=== PATIENT | male | born 1985 | race Caucasian/White ===

== ENCOUNTER 2023-07-14 07:38 | Emergency (ER) | payer OTHER, SELFPAY ==
[2023-07-14 07:39] VITALS: BP 128/86; PULSE 91; RESP 16; TEMP 36.4; O2SAT 98; BMI 27.6
--- NOTE | 2023-07-14 07:54 | EKG12_ITS ---
Test Reason : WEAKNESS Blood Pressure : / mmHG Vent. Rate : 096 BPM Atrial Rate : 096 BPM P-R Int : 154 ms QRS Dur : 098 ms QT Int : 352 ms P-R-T Axes : 066 054 044 degrees QTc Int : 444 ms Normal sinus rhythm Nonspecific ST abnormality Abnormal ECG Confirmed by MATTY BUENO, KERRIE ([id number]), web content editor FAITH LEMA ([id number]) on 07/15/2023 12:03:05 PM Referred By: BUD Confirmed By:KERRIE STARR MD
--- NOTE | 2023-07-14 08:12 | EX.ED.DYSGE1 ---
HPI History of Present Illness Chief Complaint: General Illness Informant: patient Narrative Narrative: Presents feeling weak nausea vomiting no hematemesis today. Tingling left arm. Denies cough or urinary symptoms. Marijuana use daily. CT scan here with no other stating chest patient works 16 hours a day with 1 day off. He does sleep a few hours. He denies alcohol use. Denies history of similar. Denies any bloody stools. Does not follow doctor. Prior similar symptoms: No PFSH PFSH Home Medications tramadol 50 mg tablet 50 mg PO Q4H PRN PRN Pain 05/31/16 [History Last Taken Unknown] diazepam 5 mg tablet 5 mg PO 4X/DAY PRN PRN Spasms #40 tabs 06/02/16 [Rx Last Taken Unknown] levofloxacin 500 mg tablet 500 mg PO DAILY #14 tabs 06/02/16 [Rx Last Taken Unknown] oxycodone-acetaminophen 5 mg-325 mg tablet 1 - 2 tab PO 4X/DAY PRN PRN Pain #60 tabs 06/02/16 [Rx Last Taken Unknown] ondansetron 4 mg disintegrating tablet 4 mg PO Q8H PRN PRN Nausea #10 tabs 07/14/23 [Rx Last Taken Unknown] Allergy/AdvReac Type Severity Reaction Status Date / Time No Known Allergies Allergy Verified 07/14/23 07:38 Social History Smoking Status: Light Smoker (<10/day) ROS [facility] ED Constitutional Constitutional ED: Denies chills, fever(s) or sweats Eyes Eyes: Denies change in vision ENT ENT ED: Denies dysphagia or sore throat Cardiovascular Cardiovascular: Denies chest pain, leg edema, palpitations or racing heartbeat Respiratory/Chest Respiratory/Chest: Denies cough, dyspnea or dyspnea on exertion Gastrointestinal Gastrointestinal: Reports nausea and vomiting; Denies abdominal pain or diarrhea Genitourinary Genitourinary ED: Denies dysuria, hematuria or urinary frequency Musculoskeletal Musculoskeletal: Denies back pain, extremity pain or neck pain Integumentary Denies rash or wounds Neurologic Neurologic: Reports weakness; Denies headache(s) or paresthesias EXAM Physical Exam Const Vital Signs: 07/14/23 07:39 07/14/23 07:38 07/14/23 09:38 Temperature 97.6 F L Temperature Source Temporal Pulse Rate 91 Respiratory Rate 16 18 Respiratory Effort Normal Non-Labored Respiratory Pattern Normal Blood Pressure 128/86 H Blood Pressure Mean 100 Pulse Ox 98 Oxygen Delivery Method Room Air Positive well nourished and well developed Constitutional Narrative: Pale, nontoxic, no diaphoresis General Appearance ED: well developed HEENT Reports moist mucous membranes normocephalic and atraumatic Eyes PERRL, EOMs intact bilaterally and conjunctivae normal Eyes Narrative: Mild pale conjunctiva General Eye ED: Yes normal appearance of both eyes Neck no lymphadenopathy and supple General: Negative for tenderness Chest Wall Chest: Negative for tenderness Resp normal respiratory effort and normal air movement Effort and Inspection: symmetric chest movement; Negative for respiratory distress Cardio regular rate, regular rhythm and no murmurs Peripheral Pulses: pulses 2+ throughout GI normal to inspection, nondistended, normoactive bowel sounds and non-tender GI Narrative: Negative Bojorquez's McBurney's tenderness Palpation: Negative for guarding or rebound tenderness present Back/Spine no CVA tenderness and no thoracic nor lumbar tenderness Extremity normal to inspection General Extremety ED: Negative for edema or tenderness General Extremity: Negative for edema Neuro oriented x3, CN's II-XII intact bilaterally and no sensory deficits noted Neuro Narrative: No focal deficits Sensorium / Orientation: awake and alert Skin no rashes or lesions noted and no wounds MDM MDM MDM Narrative Medical decision making narrative: Interventions / MDM: Differential diagnosis: Viral syndrome, marijuana dependence, electrolyte abnormalities Diagnosis considered but do not suspect: N/A My EKG interpretation: Sinus rate of 96, no ST or T wave changes. Imaging independently reviewed and interpreted by myself: N/A External documents reviewed: N/A Test considered but not ordered:N/A ED course: Patient acute vomiting pale on exam. Nonsurgical abdomen. IV established for fluids and antigen headaches labs were drawn. EKG obtained pain this rhythm acute finding. 1010: Labs stable normal electrolytes. Hemoglobin 13.6. Clinically improved with no pallor. Discussed viral syndrome versus marijuana induced. P.o. challenge ordered. Re-evaluation: stable Disposition discussed with patient/family/significant other: Case discussed with consulting clinician: N/A This note was generated with [employer] dictation software. It may contain incorrect words, spelling, and punctuation that were not noted in checking the note before signing. Lab Data Labs: Laboratory Results - last 24 hr 07/14/23 07/14/23 07/14/23 08:06 08:06 08:54 WBC Cancelled 6.8 Corrected WBC Cancelled RBC Cancelled 4.05 L Hgb Cancelled 13.6 Hct Cancelled 40.6 MCV Cancelled 100.2 H MCH Cancelled 33.6 H MCHC Cancelled 33.5 RDW Std Deviation Cancelled 47.2 H RDW Coeff of Gregg Cancelled 12.9 Plt Count Cancelled 190 MPV Cancelled 9.2 Immature Gran % (Auto) Cancelled 0.400 Neut % (Auto) Cancelled 73.8 H Lymph % (Auto) Cancelled 18.7 L [place] % (Auto) Cancelled 4.4 Eos % (Auto) Cancelled 2.1 Baso % (Auto) Cancelled 0.6 Absolute Neuts (auto) Cancelled 5.0 Absolute Lymphs (auto) Cancelled 1.27 Total Counted Cancelled Neutrophils % (Manual) Cancelled Band Neutrophils % Cancelled Lymphocytes % (Manual) Cancelled Monocytes % (Manual) Cancelled Eosinophils % (Manual) Cancelled Basophils % (Manual) Cancelled Metamyelocytes % Cancelled Myelocytes % Cancelled Promyelocytes % Cancelled Blast Cells % Cancelled Plasma Cell % (Manual) Cancelled Other Cells % Cancelled Nucleated RBC % Cancelled 0 Nucleated RBCs/100 WBC Cancelled Differential Comment Cancelled Diff Path Review Cancelled Hypersegmented Neuts Cancelled Atypical Lymphocytes Cancelled Reactive Lymphocytes Cancelled Smudge Cells Cancelled Toxic Granulation Cancelled Toxic Vacuolation Cancelled Dohle Bodies Cancelled [place] Rods Cancelled Platelet Estimate Cancelled Plt Morphology Comment Cancelled RBC Morphology Cancelled Cancelled Polychromasia Cancelled Hypochromasia Cancelled Poikilocytosis Cancelled Basophilic Stippling Cancelled Anisocytosis Cancelled Microcytosis Cancelled Macrocytosis Cancelled Spherocytes Cancelled Sickle Cells Cancelled Target Cells Cancelled Tear Drop Cells Cancelled Ovalocytes Cancelled Stomatocytes Cancelled [place] Bodies Cancelled Jyoti Cells Cancelled Bite Cells Cancelled Crenated Cell Cancelled Acanthocytes (Spur) Cancelled Rouleaux Cancelled Schistocytes Cancelled Sodium 138 Potassium 3.7 Chloride 108 H Carbon Dioxide 22.0 Anion Gap 8 BUN 13 Creatinine 1.06 Estim Creat Clear Calc 106.78 Est GFR (MDRD) Af Amer 100 Est GFR (MDRD) Non-Af 83 BUN/Creatinine Ratio 12.3 Glucose 134 H Calcium 8.8 Discharge Plan Triage Chief Complaint: General Illness ED Provider: Sushil Yepez Dx/Rx/DC Orders Clinical Impression: Marijuana dependence, Acute viral syndrome, Vomiting Instructions: ED Marijuana Abuse, ED Viral Syndrome (Adult), ED Vomiting (Adult) Prescriptions: New ondansetron [ondansetron] 4 mg tablet,disintegrating 4 mg PO Q8H PRN PRN (Reason: Nausea) Qty: 10 0RF No Action tramadol 50 MG tablet 50 mg PO Q4H PRN PRN (Reason: Pain) Patient Comments: Pain medication oxycodone-acetaminophen 1 TABLET tablet 1 - 2 tab PO 4X/DAY PRN PRN (Reason: Pain) Qty: 60 0RF Patient Comments: pain levofloxacin 500 MG tablet 500 mg PO DAILY Qty: 14 2RF Patient Comments: antibiotic diazepam 5 MG tablet 5 mg PO 4X/DAY PRN PRN (Reason: Spasms) Qty: 40 0RF Patient Comments: muscle spasm/pain Stand Alone Forms: ED Work / School Excuse Primary Care Provider: Care Physician,No Primary Referrals: Rosa Maria Reich MD [Med Staff - Spiritual Counselor] - 1-2 Weeks Care Physician,No Primary [Primary Care Provider] - Activity Restrictions/Additional Instructions: EKG and COVID test normal. Basic labs normal. Likely viral syndrome possible marijuana induced. Continue oral fluids, Zofran as needed. Follow-up as an outpatient. Return if any worsening symptoms. Disposition Disposition: Home, Self Care Discharge Date/Time: 07/14/23 11:00
[2023-07-14] MEDS: Ondansetron 4 MG/2 ML Vial IV (08:37)
[2023-07-14] MEDS: 0.9% Normal Saline 1,000 ML 1000 ML IV (08:37)
[2023-07-14 08:38] LABS: Anion Gap 8 (5-15); BUN 13 mg/dL (7-18); BUN/Creat Ratio 12.3 RATIO (10-20); Calcium,Total 8.8 mg/dL (8.5-10.1); Chloride 108 mmol/L (98-107); Creatinine, Serum 1.06 mg/dL (0.70-1.30); EST Glomerular Filtration Rate 83 mL/min (>60); Est Glom Filt Rate - Afr Amer 100 mL/min (>60); Estimated Creatinine Clearance 106.78 ml/min; Glucose 134 mg/dL (74-106); Potassium 3.7 mmol/L (3.5-5.1); Sodium Level 138 mmol/L (136-145)
[2023-07-14 09:01] LABS: Absolute Lymphocyte Count 1.27 X10^3/uL (0.83-4.51); Basophil# 0.04 X10^3/uL; Basophil% 0.6 % (0-1); Eosinophil# 0.14 X10^3/uL; Eosinophils% 2.1 % (0-5); Hematocrit 40.6 % (40-54); Hemoglobin 13.6 g/dL (13.0-16.5); Lymphocyte # 1.27 X10^3/ul (0.83-4.51); Lymphocyte % 18.7 % (19-41); Mean Corp Hgb Conc 33.5 g/dL (32-36); Mean Corpuscular Hgb 33.6 pg (27.0-32.0); Mean Corpuscular Volume 100.2 fL (80-94); Mean Platelet Vol. 9.2 fl (6.2-12.0); Monocyte% 4.4 % (0-10); NRBC Flagged by Analyzer 0 % (0-5); Neutrophil % 73.8 % (47-70); Platelet Count 190 K/mm3 (150-450); RBC Distribution Width CV 12.9 % (11.6-14.6); RBC Distribution Width SD 47.2 fl (35.1-43.9); Red Blood Count 4.05 M/mm3 (4.6-6.2); White Blood Count 6.8 K/mm3 (4.4-11.0)
[2023-07-14 09:38] VITALS: RESP 18
[2023-07-14] MEDS: Acetaminophen 500 MG Tablet 1000 MG PO (10:06)
== END 2023-07-14 11:00 | disposition home or self-care (01) ==
PROVIDERS: Emergency Provider Emergency Medicine; Visit Provider Emergency Medicine
DX: B34.9 Viral infection, unspecified (principal); F12.20 Cannabis dependence, uncomplicated; F17.200 Nicotine dependence, unspecified, uncomplicated; R11.10 Vomiting, unspecified
CPT/HCPCS: 80048; 85025; 87428; 93005; 96361; 96374; 99284; J7030; A4216; J2405

== ENCOUNTER → 2025-02-28 | Outpatient (CLI) | payer OTHER, SELFPAY ==
[2025-02-28 12:43] LABS: Absolute Lymphocyte Count 1.94 X10^3/uL (0.83-4.51); Absolute Neutrophil Count 2.6 X10^3/uL (2.0-7.7); Basophil# 0.05 X10^3/uL; Basophil% 0.9 % (0-1); Eosinophil# 0.37 X10^3/uL; Hematocrit 44.8 % (40-54); Hemoglobin 15.5 g/dL (13.0-16.5); Lymphocyte # 1.94 X10^3/ul (0.83-4.51); Lymphocyte % 36.7 % (19-41); Mean Corp Hgb Conc 34.6 g/dL (32-36); Mean Corpuscular Hgb 33.9 pg (27.0-32.0); Mean Platelet Vol. 9.2 fl (6.2-12.0); Monocyte# 0.34 X10^3/uL; Monocyte% 6.4 % (0-10); NRBC Flagged by Analyzer 0 % (0-5); Neutrophil # 2.58 X10^3/uL (2.7-7.7); Neutrophil % 48.8 % (47-70); POSITIVE MORPHOLOGY YES; Platelet Count 208 K/mm3 (150-450); RBC Distribution Width CV 12.2 % (11.6-14.6); RBC Distribution Width SD 44.1 fl (35.1-43.9); Red Blood Count 4.57 M/mm3 (4.6-6.2); White Blood Count 5.3 K/mm3 (4.4-11.0)
[2025-02-28 12:51] LABS: Differential Indicated SCAN CRITERIA MET
[2025-02-28 13:27] LABS: ALB/GLOB Ratio 1.4 RATIO (0.9-2.4); AST(SGOT) 19 U/L (<=37); Alanine Aminotransfer ALT/SGPT 13 U/L (<=46); Albumin, Serum 4.2 g/dL (3.5-5.0); Alkaline Phosphatase 81 U/L (40-129); Anion Gap 11 (5-15); BUN 15 mg/dL (4-19); BUN/Creat Ratio 15.1 RATIO (10-20); Calcium,Total 8.8 mg/dL (7.6-11.0); Carbon Dioxide 24.4 mmol/L (21.0-32.0); Chloride 105 mmol/L (98-108); Cholesterol 185 mg/dL (<=200); Creatinine, Serum 0.99 mg/dL (0.70-1.20); EST Glomerular Filtration Rate 99 (>60); Glucose 93 mg/dL (70-99); High Density Lipoprotein 42 mg/dL; Low Density Lipoprotein Calc. 129 mg/dL; Potassium 4.2 mmol/L (3.3-5.1); Protein, Total 7.2 g/dL (5.9-8.4); Sodium Level 140 mmol/L (133-145); Total Bilirubin 0.33 mg/dL (0.00-1.30); Triglycerides 68 mg/dL; Very Low Density Lipoprotein 14 mg/dL (5-40); cholesterol:hdl ratio screen 4.37
[2025-02-28 13:29] LABS: PSA,Total - Annual Screen 0.75 ng/mL (0.02-4.00); Vitamin B12 1665 pg/mL (180-914); Vitamin D,25 Hydroxy 14.8 ng/mL (30-100)
[2025-02-28 13:40] LABS: Hemoglobin A1c 5.5 % (<=5.6)
== END | disposition home or self-care (01) ==
LOC: VSLAB 09:28
DX: Z13.6 Encounter for screening for cardiovascular disorders (principal); Z13.220 Encounter for screening for lipoid disorders; Z13.1 Encounter for screening for diabetes mellitus; Z80.42 Family history of malignant neoplasm of prostate; R53.83 Other fatigue
CPT/HCPCS: 36415; 80053; 80061; 82306; 82607; 83036; 84153; 84443; 85025; G0103

== ENCOUNTER → 2025-05-30 | Outpatient (CLI) | payer OTHER, SELFPAY ==
--- NOTE | 2025-05-30 10:00 | VAS_PTH ---
PATIENT: PILY BEST LOC: [facility] U#:[id number] AGE/SX: 39/M ROOM: RE05/30/[address] 1985 [facility]: DIS: 05/30/2025 SPEC #: [id number] RECD: 05/30/25 14:16 STATUS: NARA REDavis #: [id number] [place]: 05/30/25 10:[address]: Atul Self [facility] DEPT: SURGICAL PATHOLOGY RECD BY: Deacon Samuel ENTERED: 05/30/25 15:10 SP TYPE: VAS OTHR DR: Rossy Agarwal, [facility], VISUAL AID EXPERT-C Tissues: A - Vas deferens, NOS Procedures: Surgery Specimen Level II HEADER OPERATION: Bilateral partial vasectomy PRE-OP DIAGNOSIS: Sterilization TISSUE SUBMITTED: A- Right vas deferens, B- Left vas deferens MICROSCOPIC DIAGNOSIS A. Vas deferens, right, "sterilization", partial vasectomy: - Complete luminal cross-section confirmed. B. Vas deferens, left, "sterilization", partial vasectomy: - Complete luminal cross-section confirmed. MICROSCOPIC DESCRIPTION Slides are reviewed. GROSS DESCRIPTION Received in 2 formalin containers labeled with the patient's name and date of . Designated as: A. "Right" is a 1.4 cm length by 0.3 cm in diameter saba-white to pink, fibrotic, cylindrical portion of tissue. The specimen is inked black, serially sectioned and entirely submitted in 1 cassette. B. "Left" is a 1.0 cm length by 0.3 cm in diameter saba-white to pink, fibrotic, cylindrical portion of tissue. The specimen is inked green, serially sectioned and entirely submitted in 1 cassette. SD 05/30/2025 CPT:57522k1
== END | disposition home or self-care (01) ==
LOC: LABSPEC 11:59
PROVIDERS: Visit Provider Surgery
DX: Z20.2 Contact with and (suspected) exposure to infections with a predominantly sexual mode of transmission (principal)
CPT/HCPCS: 88302

== ENCOUNTER → 2025-06-06 | Outpatient (CLI) | payer OTHER, SELFPAY ==
[2025-06-06 13:18] LABS: Vitamin D,25 Hydroxy 32.9 ng/mL (30-100)
== END | disposition home or self-care (01) ==
LOC: VSLAB 08:57
DX: E55.9 Vitamin D deficiency, unspecified (principal); Z98.52 Vasectomy status
CPT/HCPCS: 36415; 82306

== ENCOUNTER → 2025-06-13 | Outpatient (CLI) | payer OTHER, SELFPAY | END | disposition home or self-care (01) | LOC: LABSPEC 10:49 | PROVIDERS: Visit Provider Surgery | DX: L72.0 Epidermal cyst (principal) | CPT/HCPCS: 88304 ==

== ENCOUNTER 2025-08-29 12:26 | Outpatient (CLI) | payer OTHER, SELFPAY ==
--- OUTSIDE RECORDS SUMMARY | 2025-08-29 14:04 | XMS RPT_ITS | CCD ---
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 Atul Self MD Attending Provider Beam, Zekimi Primary Care Unavailable Atul Harris Attending Unavailable Rossy Agarwal Attending Unavailable Beam, Zebujuani Primary Care Unavailable Beam, Zekimi Primary Care Unavailable Atul Harris Attending Unavailable Atul Harris Attending Unavailable Beam, Zebujuani Primary Care Unavailable Beam, Zekimi Attending Unavailable Beam, Zebulun Primary Care Unavailable Medications Current Medications Medication Drug Class(es) Dates Sig (Normalized) Sig (Original) acetaminophen 325 mg / oxyCODONE hydrochloride 5 mg oral tablet (3 sources) Opioid Agonist Start: 06-02-2016 Oxycodone-Acetamin ophen 1 TABLET tablet Active 1 - 2 {tbl} PO 4 TIMES DAILY NEEDED as needed for Pain 60 June 02, 2016 6:36pm Start: 06-02-2016 take 1 tablet by [facility] four times daily as needed Oxycodone-Acetaminophen Active 1 - 2 TABLET PO 4 TIMES DAILY NEEDED 60 June 02, 2016 6:36pm diazePAM 5 mg oral tablet (3 sources) Benzodiazepine Start: 06-02-2016 take 1 tablet by mouth four times daily as needed for muscle spasms Diazepam 5 MG tablet Active 5 mg PO 4 TIMES DAILY NEEDED as needed for Spasms 40 June 02, 2016 6:36pm levoFLOXacin 500 mg oral tablet (3 sources) Quinolone Antimicrobial Start: 06-02-2016 take 1 tablet by mouth once daily Levofloxacin 500 MG tablet Active 500 mg PO DAILY 14 2 June 02, 2016 12:00am ondansetron 4 mg disintegrating oral tablet (3 sources) Serotonin-3 Receptor Antagonist Start: 07-14-2023 take 1 tablet by mouth every eight hours as needed for nausea Ondansetron 4 mg tablet,disintegra ting Active 4 mg PO EVERY 8 HOURS NEEDED as needed for Nausea 10 July 14, 2023 12:00am traMADol hydrochloride 50 mg oral tablet (3 sources) Opioid Agonist Start: 05-31-2016 take 1 tablet by mouth every four hours as needed for pain Tramadol 50 MG tablet Active 50 mg PO EVERY 4 HOURS NEEDED as needed for Pain May 31, 2016 12:00am Completed/Discontinued Medications Medication Drug Class(es) Dates Sig (Normalized) Sig (Original) cephalexin 500 mg oral capsule (3 sources) Cephalosporin Antibacterial Start: 03-13-2016 End: 04-01-2016 take 1 capsule by mouth every six hours Cephalexin 500 MG capsule Discontinued 500 mg PO EVERY 6 HOURS March 13, 2016 12:00am April 01, 2016 11:18am Problems Active Problems Problem Classification Problem Date Documented Date Episodic/Chronic Administrative/social admission (3 sources) Counseling procedure with explicit context; Translations: [Tobacco abuse counseling] 07-09-2016 Episodic Anal and rectal conditions (3 sources) Perirectal abscess; Translations: [Rectal abscess] 09-03-2016 Episodic Chronic ulcer of skin (3 sources) Chronic ulcer of skin; Translations: [Non-pressure chronic ulcer of skin of other sites with unspecified severity] 09-10-2016 Chronic Comment on above: L98.499nonhealing pi lonidal ulcer sacral area Complications of surgical procedures or medical care (3 sources) Non-healing surgical wound; Translations: [Other complications of procedures, not elsewhere classified, initial encounter] 09-10-2016 Episodic Contraceptive and procreative management (1 source) Vasectomy status; Translations: [Vasectomy status] Onset: 06-06-2025 Episodic Immunizations and screening for infectious disease (1 source) Contact with and (suspected) exposure to infections with a predominantly sexual mode of transmission; Translations: [Contact with and (suspected) exposure to infections with a predominantly sexual mode of transmission] Onset: 06-04-2025 Episodic Nausea and vomiting (3 sources) Vomiting; Translations: [Vomiting, unspecified] 07-14-2023 Episodic Nutritional deficiencies (1 source) Vitamin D deficiency, unspecified; Translations: [Vitamin D deficiency, unspecified] Onset: 06-13-2025 Chronic Open wounds of head; neck; and trunk (3 sources) Finding of sacral region; Translations: [Unspecified open wound of lower back and pelvis without penetration into retroperitoneum, initial encounter] 06-25-2016 Episodic Comment on above: S31.000Aopen surgica l wound sacral area Other aftercare (3 sources) Postoperative visit; Translations: [Encounter for follow-up examination after completed treatment for conditions other than malignant neoplasm] 08-13-2016 Episodic Other skin disorders (1 source) Epidermal cyst; Translations: [Epidermal cyst] Onset: 06-20-2025 Episodic Skin and subcutaneous tissue infections (6 sources) Pilonidal cyst with abscess; Translations: [Pilonidal cyst with abscess] 06-25-2016 Episodic Comment on above: L05.01extensive comp licated infected pilonidal cyst with perianal extension Spondylosis; intervertebral disc disorders; other back problems (3 sources) Pain in the coccyx; Translations: [Sacrococcygeal disorders, not elsewhere classified] 08-13-2016 Episodic Substance-related disorders (6 sources) Cannabis dependence; Translations: [Cannabis dependence, uncomplicated] 07-14-2023 Chronic Comment on above: F17.200 Viral infection (3 sources) Acute viral disease; Translations: [Viral infection, unspecified] 07-14-2023 Episodic Past or Other Problems Problem Classification Problem Date Documented Date Episodic/Chronic Other screening for suspected conditions (not mental disorders or infectious disease) (1 source) Encounter for screening for cardiovascular disorders; Translations: [Encounter for screening for cardiovascular disorders] Onset: 03-05-2025 Episodic Results Test Name Value Interpretation Reference Range Facility Surgical pathology reportOrd ered By: Franck Briones on 06-18-2025 Surgical pathology study [facility] Surgery Specimen Level IIIon 06-13-2025 Surgery Specimen Level III Patient Age/Sex Location Account Attending Physician PILY BEST 39/M LABSPEC [id number] Atul Self MD Specimen: [id number] Received: 06/13/25 Status: NARA Carney Num: [id number] Spec Type: Cyst Subm Dr: Atul Self MD HEADER OPERATION: Wide excision superior forehead cyst PRE-OP DIAGNOSIS: Superior forehead sebaceous cyst TISSUE SUBMITTED: A- Superior forehead sebaceous cyst MICROSCOPIC DIAGNOSIS A. Skin, superior forehead, excision: * Benign follicular cyst, infundibular type MICROSCOPIC DESCRIPTION Slides are reviewed. GROSS DESCRIPTION A. Received in formalin labeled with the patient's name and date of is a 2.6 x 1.8 x 1.4 cm saba-white, intact cyst partially surfaced by a 2.9 x 0.8 cm saba skin ellipse devoid of orientation. Sectioning reveals a fibrotic cyst wall and saba-white, sebaceous like cyst contents. A solar manufacturer's representative section is submitted in 1 cassette. NC 06/13/2025 [facility]:[id number] Patient Age/Sex Location Account Attending Physician PILY BEST 39/M LABSPEC [id number] Atul Self MD Signed (signatur e on file) Dr. Franck Ortega MD 06/18/25 1333 Normal [facility] Comment on above: Performed By: #### P SUIII #### [facility] [address] [place], [address] Vitamin D,25 Hydroxyon 06-06 Vitamin D 25-OH 32.9 ng/mL Normal 30-100 [facility] Comment on above: Result Comment: Alayna min D Status Deficiency: <20 ng/mL (50nmol/L) Insufficiency: 20-30 ng/mL (50-75 nmol/L) Sufficiency: 30-100 ng/mL (75-250 nmol/L) Toxicity: >100 ng/mL (>250 nmol/L) Performed By: #### L 506.1001, L500.4050, L500.4100, L503.0106, L100.0100, L501.9910, L501.9520, L501.9985 #### [facility] [address] [place], [address] Surgical pathology reportOrd ered By: Mackenzie Leos on 06-03-2025 Surgical pathology study [facility] Surgery Specimen Level IIon 05-30-2025 Surgery Specimen Level II ----- Patient Age/Sex Location Account Attending Physician PILY BEST 39/M LABSPEC [id number] Atul Self MD Specimen: [id number] Received: 05/30/25 Status: NARA Carney Num: [id number] Spec Type: VAS Subm Dr: Atul Self [facility] HEADER OPERATION: Bilateral partial vasectomy PRE-OP DIAGNOSIS: Sterilization TISSUE SUBMITTED: A- Right vas deferens, B- Left vas deferens MICROSCOPIC DIAGNOSIS A. Vas deferens, right, sterilization, partial vasectomy: - Complete luminal cross-section confirmed. B. Vas deferens, left, sterilization, partial vasectomy: - Complete luminal cross-section confirmed. MICROSCOPIC DESCRIPTION Slides are reviewed. GROSS DESCRIPTION Received in 2 formalin containers labeled with the patient's name and date of . Designated as: A. Right is a 1.4 cm length by 0.3 cm in diameter saba-white to pink, fibrotic, cylindrical portion of tissue. The specimen is inked black, serially sectioned and entirely submitted in 1 cassette. B. Left is a 1.0 cm length by 0.3 cm in diameter saba-white to pink, fibrotic, cylindrical portion of tissue. The specimen is inked green, serially sectioned and entirely submitted in 1 cassette. NC 05/30/2025 CPT:02884v3 Patient Age/Sex Location Account Attending Physician PILY BEST 39/M LABSPEC [id number] Atul Self MD Signed (signatur e on file) Dr. Mackenzie Leos MD 06/03/25 3355 Normal [facility] Comment on above: Performed By: #### P SUII #### [facility] [address] [facility] [place], [place], [id number] Absolute lymphocyte countOrd ered By: Zebulun Beam on 02-28-2025 Lymphocytes Auto (Unsp spec) [#/Vol] 1.94 10*3/uL 0.83-4.51 [facility] Absolute neutrophil countOrd ered By: Zebulun Beam on 02-28-2025 Neutrophils (Bld) [#/Vol] 2.6 10*3/uL 2.0-7.7 [facility] Anion gap in Serum or Plasma Ordered By: Zebulun Beam on 02-28-2025 Anion gap [Moles/Vol] 11 mmol/L 5- [facility] Automated lymphocyte count a s percentage of total leukocytesOrdered By: Zebulun Beam on 02-28-2025 Lymphocytes/100 WBC Auto (Unsp spec) 36.7 % - [facility] BUN/creatinine ratioOrdered By: Zebulun Beam on 02-28-2025 Urea nitrogen/Creatinine [Mass ratio] 15.1 mg/mg 10- [facility] Basophil percentageOrdered B y: Zebulun Beam on 02-28-2025 Basophils/100 WBC (Bld) 0.9 % 0-1 [facility] Bilirubin, totalOrdered By: Zebulun Beam on 02-28-2025 Bilirubin [Mass/Vol] 0.33 mg/dL 0.00-1.30 [facility] CBC W/Diff, Automatedon 02-06 Absolute Lymph 1.94 X10 3/uL Normal 0.83-4.51 [facility] Comment on above: Performed By: #### L 506.1001, L500.4050, L500.4100, L503.0106, L100.0100, L501.9910, L501.9520, L501.9985 #### [facility] [address] [place], [address] Absolute Neut 2.6 X10 3/uL Normal 2.0-7.7 [facility] Comment on above: Performed By: #### L 506.1001, L500.4050, L500.4100, L503.0106, L100.0100, L501.9910, L501.9520, L501.9985 #### [facility] [address] [place], [address] Basophils/100 WBC (Bld) 0.9 % Normal 0-1 [facility] Comment on above: Performed By: #### L 506.1001, L500.4050, L500.4100, L503.0106, L100.0100, L501.9910, L501.9520, L501.9985 #### [facility] [address] [place], [address] Eosinophils/100 WBC (Bld) 7.0 % High 0-5 [facility] Comment on above: Performed By: #### L 506.1001, L500.4050, L500.4100, L503.0106, L100.0100, L501.9910, L501.9520, L501.9985 #### [facility] [address] [place], [address] Erythrocyte distribution width (RBC) [Ratio] 12.2 % Normal 11.6-14.6 [facility] Comment on above: Performed By: #### L 506.1001, L500.4050, L500.4100, L503.0106, L100.0100, L501.9910, L501.9520, L501.9985 #### [facility] [address] [place], [address] Hematocrit (Bld) [Volume fraction] 44.8 % Normal 40-54 [facility] Comment on above: Performed By: #### L 506.1001, L500.4050, L500.4100, L503.0106, L100.0100, L501.9910, L501.9520, L501.9985 #### [facility] [address] [place], [address] Hemoglobin (Bld) [Mass/Vol] 15.5 g/dL Normal 13.0-16.5 [facility] Comment on above: Performed By: #### L 506.1001, L500.4050, L500.4100, L503.0106, L100.0100, L501.9910, L501.9520, L501.9985 #### [facility] [address] [place], [address] IG% 0.200 Normal 0.0-0.9 [facility] Comment on above: Result Comment: IG% - Immature Granulocytes (promyelocytes, myelocytes and metamyelocytes) > 1% indicates that a LEFT SHIFT is Present. Performed By: #### L 506.1001, L500.4050, L500.4100, L503.0106, L100.0100, L501.9910, L501.9520, L501.9985 #### [facility] [address] [place], [address] Lymphocytes/100 WBC (Bld) 36.7 % Normal 19-41 [facility] Comment on above: Performed By: #### L 506.1001, L500.4050, L500.4100, L503.0106, L100.0100, L501.9910, L501.9520, L501.9985 #### [facility] [address] [place], [address] MCH (RBC) [Entitic mass] 33.9 pg High 27.0-32.0 [facility] Comment on above: Performed By: #### L 506.1001, L500.4050, L500.4100, L503.0106, L100.0100, L501.9910, L501.9520, L501.9985 #### [facility] [address] [place], [address] MCHC (RBC) [Mass/Vol] 34.6 g/dL Normal 32-36 [facility] Comment on above: Performed By: #### L 506.1001, L500.4050, L500.4100, L503.0106, L100.0100, L501.9910, L501.9520, L501.9985 #### [facility] [address] [place], [address] MCV (RBC) [Entitic vol] 98.0 fL High 80-94 [facility] Comment on above: Performed By: #### L 506.1001, L500.4050, L500.4100, L503.0106, L100.0100, L501.9910, L501.9520, L501.9985 #### [facility] [address] [place], [address] Monocytes/100 WBC (Bld) 6.4 % Normal 0-10 [facility] Comment on above: Performed By: #### L 506.1001, L500.4050, L500.4100, L503.0106, L100.0100, L501.9910, L501.9520, L501.9985 #### [facility] [address] [facility] [place], [address] Neutrophils/100 WBC (Bld) 48.8 % Normal 47-70 [facility] Comment on above: Performed By: #### L 506.1001, L500.4050, L500.4100, L503.0106, L100.0100, L501.9910, L501.9520, L501.9985 #### [facility] [address] [facility] [place], [address] Nucleated RBC (Bld) [#/Vol] 0 10*3/uL Normal 0-5 [facility] Comment on above: Performed By: #### L 506.1001, L500.4050, L500.4100, L503.0106, L100.0100, L501.9910, L501.9520, L501.9985 #### [facility] [address] [place], [address] Platelet mean volume (Bld) [Entitic vol] 9.2 fL Normal 6.2-12.0 [facility] Comment on above: Performed By: #### L 506.1001, L500.4050, L500.4100, L503.0106, L100.0100, L501.9910, L501.9520, L501.9985 #### [facility] [address] [place], [address] Platelets (Bld) [#/Vol] 208 10*3/uL Normal 150-450 [facility] Comment on above: Performed By: #### L 506.1001, L500.4050, L500.4100, L503.0106, L100.0100, L501.9910, L501.9520, L501.9985 #### [facility] [address] [place], [address] RBC (Bld) [#/Vol] 4.57 10*6/uL Low 4.6-6.2 [facility] Comment on above: Performed By: #### L 506.1001, L500.4050, L500.4100, L503.0106, L100.0100, L501.9910, L501.9520, L501.9985 #### [facility] [address] [place], [address] RDW SD 44.1 fl High 35.1-43.9 [facility] Comment on above: Performed By: #### L 506.1001, L500.4050, L500.4100, L503.0106, L100.0100, L501.9910, L501.9520, L501.9985 #### [facility] [address] [place], [address] WBC (Bld) [#/Vol] 5.3 10*3/uL Normal 4.4-11.0 [facility] Comment on above: Performed By: #### L 506.1001, L500.4050, L500.4100, L503.0106, L100.0100, L501.9910, L501.9520, L501.9985 #### [facility] [address] [place], [address] Calculated very low density lipoprotein (VLDL) cholesterol measurementOrdered By: Rossy Agarwal on 02-28-2025 Calculated very low density lipoprotein (VLDL) cholesterol measurement 14 mg/dL 5-40 [facility] Carbon dioxide, total [Moles /volume] in Central venous bloodOrdered By: Rossy Agarwal on 02-28-2025 CO2 [Moles/Vol] 24.4 mmol/L 21.0-32.0 [facility] Chloride assayOrdered By: Krish Agarwal on 02-28-2025 Chloride [Moles/Vol] 105 mmol/L 98-108 [facility] Comprehensive Metabolic Prof ilon 02-28-2025 Albumin [Mass/Vol] 4.2 g/dL Normal 3.5-5.0 [facility] Comment on above: Performed By: #### L 506.1001, L500.4050, L500.4100, L503.0106, L100.0100, L501.9910, L501.9520, L501.9985 #### [facility] [address] [place], [address] Albumin/Globulin [Mass ratio] 1.4 {ratio} Normal 0.9-2.4 [facility] Comment on above: Performed By: #### L 506.1001, L500.4050, L500.4100, L503.0106, L100.0100, L501.9910, L501.9520, L501.9985 #### [facility] [address] [place], [address] ALK PHOS 81 U/L Normal 40-129 [facility] Comment on above: Performed By: #### L 506.1001, L500.4050, L500.4100, L503.0106, L100.0100, L501.9910, L501.9520, L501.9985 #### [facility] [address] [place], [address] ALT [Catalytic activity/Vol] 13 U/L Normal <=46 [facility] Comment on above: Performed By: #### L 506.1001, L500.4050, L500.4100, L503.0106, L100.0100, L501.9910, L501.9520, L501.9985 #### [facility] [address] [place], [address] AST [Catalytic activity/Vol] 19 U/L Normal <=37 [facility] Comment on above: Performed By: #### L 506.1001, L500.4050, L500.4100, L503.0106, L100.0100, L501.9910, L501.9520, L501.9985 #### [facility] [address] [place], [address] Bilirubin [Mass/Vol] 0.33 mg/dL Normal 0.00-1.30 [facility] Comment on above: Performed By: #### L 506.1001, L500.4050, L500.4100, L503.0106, L100.0100, L501.9910, L501.9520, L501.9985 #### [facility] [address] [place], [address] BUN/CRE 15.1 RATIO Normal 10-20 [facility] Comment on above: Performed By: #### L 506.1001, L500.4050, L500.4100, L503.0106, L100.0100, L501.9910, L501.9520, L501.9985 #### [facility] [address] [place], [address] Calcium [Mass/Vol] 8.8 mg/dL Normal 7.6-11.0 [facility] Comment on above: Performed By: #### L 506.1001, L500.4050, L500.4100, L503.0106, L100.0100, L501.9910, L501.9520, L501.9985 #### [facility] [address] [place], [place], [id number] Chloride [Moles/Vol] 105 mmol/L Normal 98-108 [facility] Comment on above: Performed By: #### L 506.1001, L500.4050, L500.4100, L503.0106, L100.0100, L501.9910, L501.9520, L501.9985 #### [facility] [address] [place], [place], [id number] CO2 [Moles/Vol] 24.4 mmol/L Normal 21.0-32.0 [facility] Comment on above: Performed By: #### L 506.1001, L500.4050, L500.4100, L503.0106, L100.0100, L501.9910, L501.9520, L501.9985 #### [facility] [address] [place], [address] Creatinine [Mass/Vol] 0.99 mg/dL Normal 0.70-1.20 [facility] Comment on above: Performed By: #### L 506.1001, L500.4050, L500.4100, L503.0106, L100.0100, L501.9910, L501.9520, L501.9985 #### [facility] [address] [place], [address] GAP 11 Normal 5-15 [facility] Comment on above: Performed By: #### L 506.1001, L500.4050, L500.4100, L503.0106, L100.0100, L501.9910, L501.9520, L501.9985 #### [facility] [address] [place], [address] GFR/1.73 sq M.predicted among non-blacks MDRD (S/P/Bld) [Vol rate/Area] 99 mL/min/{1.73_m2} Normal >60 [facility] Comment on above: Result Comment: mL/m in/1.73m2 CKD-EPI Creatinine Equation (2020) Performed By: #### L 506.1001, L500.4050, L500.4100, L503.0106, L100.0100, L501.9910, L501.9520, L501.9985 #### [facility] [address] [place], [address] Globulin (S) [Mass/Vol] 3.0 g/dL Normal 2.2-4.2 [facility] Comment on above: Performed By: #### L 506.1001, L500.4050, L500.4100, L503.0106, L100.0100, L501.9910, L501.9520, L501.9985 #### [facility] [address] [place], [address] Glucose [Mass/Vol] 93 mg/dL Normal 70-99 [facility] Comment on above: Performed By: #### L 506.1001, L500.4050, L500.4100, L503.0106, L100.0100, L501.9910, L501.9520, L501.9985 #### [facility] [address] [place], [address] Potassium [Moles/Vol] 4.2 mmol/L Normal 3.3-5.1 [facility] Comment on above: Performed By: #### L 506.1001, L500.4050, L500.4100, L503.0106, L100.0100, L501.9910, L501.9520, L501.9985 #### [facility] [address] [place], [address] Sodium [Moles/Vol] 140 mmol/L Normal 133-145 [facility] Comment on above: Performed By: #### L 506.1001, L500.4050, L500.4100, L503.0106, L100.0100, L501.9910, L501.9520, L501.9985 #### [facility] [address] [place], [place], [id number] T PROT 7.2 g/dL Normal 5.9-8.4 [facility] Comment on above: Performed By: #### L 506.1001, L500.4050, L500.4100, L503.0106, L100.0100, L501.9910, L501.9520, L501.9985 #### [facility] [address] [place], [address] Urea nitrogen [Mass/Vol] 15 mg/dL Normal 4-19 [facility] Comment on above: Performed By: #### L 506.1001, L500.4050, L500.4100, L503.0106, L100.0100, L501.9910, L501.9520, L501.9985 #### [facility] [address] [place], [place], [id number] Eosinophil percentageOrdered By: Rossy Agarwal on 02-28-2025 Eosinophils/100 WBC (Bld) 7.0 % High 0-5 [facility] Erythrocyte distribution wid th ratioOrdered By: [facility] Be[facility] on 02-28-2025 Erythrocyte distribution width (RBC) [Ratio] 12.2 % 11.6-14.6 [facility] Erythrocyte distribution wid th standard deviationOrdered By: [facility] Charlottealetha Beam on 02-28-2025 Erythrocyte distribution width (RBC) [Ratio] 44.1 fl High 35.1-43.9 [facility] Glomerular filtration rate ( GFR) estimation/1.73 sq m using serum, plasma, or whole bOrdered By: Rossy Agarwal on 02-28-2025 GFR/1.73 sq M.predicted among non-blacks MDRD (S/P/Bld) [Vol rate/Area] 99 mL/min/{1.73_m2} >60 [facility] Comment on above: mL/min/1.73m2 CKD-EP I Creatinine Equation (2020) Hematocrit Auto (Bld) [Volum e fraction]Ordered By: Rossy Agarwal on 02-28-2025 Hematocrit (Bld) [Volume fraction] 44.8 % 40-54 [facility] Hemoglobin A1con 02-28-2025 HbA1c (Bld) [Mass fraction] 5.5 % Normal <=5.6 [facility] Comment on above: Result Comment: Norm al < 5.7 % Prediabetic 5.7 - 6.4 % Diabetic >or= 6.5 % Please note range changes. Performed By: #### L 506.1001, L500.4050, L500.4100, L503.0106, L100.0100, L501.9910, L501.9520, L501.9985 #### [facility] [place] [facility] [address] [place], [place], [id number] Hemoglobin A1c percentageOrd ered By: Rossy Agarwal on 02-28-2025 HbA1c (Bld) [Mass fraction] 5.5 % <5.7 [facility] Comment on above: Normal < 5.7 % Predi abetic 5.7 - 6.4 % Diabetic >or= 6.5 % Please note range changes. Hemoglobin measurementOrdere d By: Rossy Agarwal on 02-28-2025 Hemoglobin (Bld) [Mass/Vol] 15.5 g/dL 13.0-16.5 [facility] Immature granulocytes/100 WB C Auto (Bld)Ordered By: Rossy Agarwal on 02-28-2025 Immature granulocytes/100 WBC (Bld) 0.200 % 0.0-0.9 [facility] Comment on above: IG% - Immature Granu locytes (promyelocytes, myelocytes and metamyelocytes) > 1% indicates that a LEFT SHIFT is Present. LDL calc ser/plasOrdered By: Rossy Agarwal on 02-28-2025 Cholesterol in LDL [Mass/Vol] 129 mg/dL [facility] Comment on above: Ltlbpofzsc=795-550 m g/dL & Higher Cyvv=483 mg/dL or greater Laboratory - Chemistry and C hemistry - challengeOrdered By: Rossy Agarwal on 02-28-2025 AST [Catalytic activity/Vol] 19 U/L <38 [facility] Lipid Profileon 02-28-2025 CHOL:HDL 4.37 Normal [facility] Comment on above: Performed By: #### L 506.1001, L500.4050, L500.4100, L503.0106, L100.0100, L501.9910, L501.9520, L501.9985 #### [facility] [address] [place], [address] Cholesterol [Mass/Vol] 185 mg/dL Normal <=200 [facility] Comment on above: Result Comment: Chol esterol level, Desirable <200 mg/dL Borderline high cholesterol 200-239 mg/dL High cholesterol >=240 mg/dL Recommendations of the NCEP Adult Treatment Panel for the following risk-cutoff thresholds for the [place] population. Performed By: #### L 506.1001, L500.4050, L500.4100, L503.0106, L100.0100, L501.9910, L501.9520, L501.9985 #### [facility] [address] [place], [address] Cholesterol in HDL [Mass/Vol] 42 mg/dL Normal [facility] Comment on above: Result Comment: Beverly onal Cholesterol Education Program (NCEP) guidelines: <40 mg/dL: Low HDL-cholesterol (major risk factor for CHD) >= 60 mg/dL: High HDL-cholesterol (negative risk factor for CHD) HDL-cholesterol is affected by a number of factors, e.g. smoking, exercise, hormones, sex and age. Performed By: #### L 506.1001, L500.4050, L500.4100, L503.0106, L100.0100, L501.9910, L501.9520, L501.9985 #### [facility] [address] [place], [address] Cholesterol in LDL [Mass/Vol] 129 mg/dL Normal [facility] Comment on above: Result Comment: Bord sbynmw=686-265 mg/dL Higher Zvwy=129 mg/dL or greater Performed By: #### L 506.1001, L500.4050, L500.4100, L503.0106, L100.0100, L501.9910, L501.9520, L501.9985 #### [facility] [address] [place], [address] Cholesterol in VLDL [Mass/Vol] 14 mg/dL Normal 5-40 [facility] Comment on above: Performed By: #### L 506.1001, L500.4050, L500.4100, L503.0106, L100.0100, L501.9910, L501.9520, L501.9985 #### [facility] [address] [place], [address] Triglyceride [Mass/Vol] 68 mg/dL Normal [facility] Comment on above: Result Comment: The drugs N-Acetylcysteine and Metamizole may falsely depress this assay. Normal range: <150 mg/dL Borderline High: 150-199 mg/dL High: 200-499 mg/dL Very High: >500 mg/dL Performed By: #### L 506.1001, L500.4050, L500.4100, L503.0106, L100.0100, L501.9910, L501.9520, L501.9985 #### [facility] [address] [place], [address] MCV (mean corpuscular volume ) determinationOrdered By: Zebulun Beam on 02-28-2025 MCV (RBC) [Entitic vol] 98.0 fL High 80-94 [facility] Mean corpuscular hemoglobin (MCH) determinationOrdered By: Zebulun Beam on 02-28-2025 MCH (RBC) [Entitic mass] 33.9 pg High 27.0-32.0 [facility] Mean corpuscular hemoglobin concentration (MCHC) determinationOrdered By: Zebulun Beam on 02-28-2025 MCHC (RBC) [Mass/Vol] 34.6 g/dL 32-36 [facility] Mean platelet volume determi nationOrdered By: Rossy Agarwal on 02-28-2025 Platelet mean volume (Bld) [Entitic vol] 9.2 fL 6.2-12.0 [facility] Monocyte percentageOrdered B y: Rossy Agarwal on 02-28-2025 Monocytes/100 WBC (Bld) 6.4 % 0-10 [facility] Neutrophil percentageOrdered By: Rossy Agarwal on 02-28-2025 Neutrophils/100 WBC (Bld) 48.8 % 47-70 [facility] Nucleated red blood cell per centageOrdered By: Rossy Agarwal on 02-28-2025 Nucleated RBC/100 WBC (Bld) [Ratio] 0 % 0-5 [facility] PSA,Total - Annual Screenon 02-28-2025 PSA,TOT SCREEN 0.75 ng/mL Normal 0.02-4.00 [facility] Comment on above: Result Comment: This test was performed using the [employer] tPSA method. Measured values of a patient??sample can vary depending on the testing procedure used. PSA values determined on patient samples by different testing procedures cannot be used interchangeably. If there is a change in PSA assays while monitoring therapy, sequential testing should be performed to confirm baseline values. Performed By: #### L 506.1001, L500.4050, L500.4100, L503.0106, L100.0100, L501.9910, L501.9520, L501.9985 #### [facility] [place], [address] Platelet countOrdered By: Krish Agarwal on 02-28-2025 Platelets (Bld) [#/Vol] 208 10*3/uL 150-450 [facility] Potassium measurement (mass/ volume)Ordered By: Rossy Agarwal on 02-28-2025 Potassium (Unsp spec) [Mass/Vol] 4.2 mmol/L 3.3-5.1 [facility] RBC Auto (Bld) [#/Vol]Ordere d By: Rossy Agarwal on 02-28-2025 RBC (Bld) [#/Vol] 4.57 10*6/uL Low 4.6-6.2 [facility] Screening total cholesterol/ high density lipoprotein (HDL) cholesterol ratioOrdered By: Kenian Beam on 02-28-2025 Cholesterol.total/Cholest kenzie in HDL [Mass ratio] 4.37 {ratio} [facility] Serum creatinine measurement (mass/volume)Ordered By: Kenian Any on 02-28-2025 Creatinine [Mass/Vol] 0.99 mg/dL 0.70-1.20 [facility] Serum globulin measurementOr dered By: Enrriquelun Beam on 02-28-2025 Globulin (S) [Mass/Vol] 3.0 g/dL 2.2-4.2 [facility] Serum glucose measurement (m ass/volume)Ordered By: Enrriquelun Beam on 02-28-2025 Glucose [Mass/Vol] 93 mg/dL 70-99 [facility] Serum or plasma alanine anand otransferase (ALT) measurementOrdered By: Zebulun Beam on 02-28-2025 ALT [Catalytic activity/Vol] 13 U/L <47 [facility] Serum or plasma albumin tanner urement (mass/volume)Ordered By: Zerejilun Beam on 02-28-2025 Albumin [Mass/Vol] 4.2 g/dL 3.5-5.0 [facility] Serum or plasma albumin/glob ulin mass ratioOrdered By: Enrriquelun Beam on 02-28-2025 Albumin/Globulin [Mass ratio] 1.4 {ratio} 0.9-2.4 [facility] Serum or plasma alkaline miranda sphatase measurementOrdered By: Zebulun Beam on 02-28-2025 ALP [Catalytic activity/Vol] 81 U/L 40-129 [facility] Serum or plasma calcium tanner urement (mass/volume)Ordered By: Zebulun Beam on 02-28-2025 Calcium [Mass/Vol] 8.8 mg/dL 7.6-11.0 [facility] Serum or plasma cholesterol in HDL measurement (mass/volume)Ordered By: Enrriquelun Beam on 02-28-2025 Cholesterol in HDL [Mass/Vol] 42 mg/dL >40 [facility] Comment on above: National Cholesterol Education Program (NCEP) guidelines:<40 mg/dL: Low HDL-cholesterol (major risk factor for CHD)>= 60 mg/dL: High HDL-cholesterol (negative risk factor for CHD)HDL-cholesterol is affected by a number of factors, e.g. smoking, exercise, hormones, sex and age. Serum or plasma cholesterol measurement (mass/volume)Ordered By: Rossy Agarwal on 02-28-2025 Cholesterol [Mass/Vol] 185 mg/dL <201 [facility] Comment on above: Cholesterol level, D esirable <200 mg/dLBorderline high cholesterol 200-239 mg/dLHigh cholesterol >=240 mg/dLRecommendations of the NCEP Adult Treatment Panel for the following risk-cutoff thresholds for the [place] population. Serum or plasma urea nitroge n measurement (mass/volume)Ordered By: Rossy Agarwal on 02-28-2025 Urea nitrogen [Mass/Vol] 15 mg/dL 4-19 [facility] Sodium levelOrdered By: Enrrique Agarwal on 02-28-2025 Sodium [Moles/Vol] 140 mmol/L 133-145 [facility] TSH DL <= 0.005 mIU/L QnOrde red By: Rossy Agarwal on 02-28-2025 TSH Qn 1.990 uIU/mL 0.300-4.200 [facility] Thyroid Stim Hormone (TSH)on 02-28-2025 TSH 1.990 uIU/mL Normal 0.300-4.200 [facility] Comment on above: Performed By: #### L 506.1001, L500.4050, L500.4100, L503.0106, L100.0100, L501.9910, L501.9520, L501.9985 #### [facility] [address] [place], [address] Total proteinOrdered By: Zander Agarwal on 02-28-2025 Protein [Mass/Vol] 7.2 g/dL 5.9-8.4 [facility] Triglycerides measurementOrd ered By: Rossy Agarwal on 02-28-2025 Triglyceride [Mass/Vol] 68 mg/dL <199 [facility] Comment on above: The drugs N-Acetylcy steine and Metamizole may falsely depress this assay. Normal range: <150 mg/dLBorderline High: 150-199 mg/dLHigh: 200-499 mg/dLVery High: >500 mg/dL Vitamin B12on 02-28-2025 Cobalamin (Vitamin B12) [Mass/Vol] 1665 pg/mL High 180-914 [facility] Comment on above: Performed By: #### L 506.1001, L500.4050, L500.4100, L503.0106, L100.0100, L501.9910, L501.9520, L501.9985 #### [facility] [address] [place], [address] Vitamin B12 ser/plasOrdered By: Rossy Agarwal on 02-28-2025 Cobalamin (Vitamin B12) [Mass/Vol] 1665 pg/mL High 180-914 [facility] Vitamin D,25 Hydroxyon 02-28 Vitamin D 25-OH 14.8 ng/mL Low 30-100 [facility] Comment on above: Result Comment: Alayna min D Status Deficiency: <20 ng/mL (50nmol/L) Insufficiency: 20-30 ng/mL (50-75 nmol/L) Sufficiency: 30-100 ng/mL (75-250 nmol/L) Toxicity: >100 ng/mL (>250 nmol/L) Performed By: #### L 506.1001, L500.4050, L500.4100, L503.0106, L100.0100, L501.9910, L501.9520, L501.9985 #### [facility] [address] [place], [address] White blood cell (WBC) count Ordered By: Rossy Agarwal on 02-28-2025 WBC (Bld) [#/Vol] 5.3 10*3/uL 4.4-11.0 [facility] Absolute lymphocyte countOrd ered By: Sushil Yepez on 07-14-2023 Lymphocytes Auto (Unsp spec) [#/Vol] 1.27 10*3/uL 0.83-4.51 [facility] Basophil percentageOrdered B y: Sushil Yepez on 07-14-2023 Basophils/100 WBC (Bld) 0.6 % 0-1 [facility] Eosinophils/100 WBC (Bld) 2.1 % 0-5 [facility] Neutrophils (Bld) [#/Vol] 5.0 10*3/uL 2.0-7.7 [facility] Neutrophils/100 WBC (Bld) 73.8 % 47-70 [facility] WBC (Bld) [#/Vol] 6.8 10*3/uL 4.4-11.0 [facility] Chloride [Moles/Vol] 108 mmol/L 98-107 [facility] Glucose [Mass/Vol] 134 mg/dL 74-106 [facility] Comment on above: Fasting Glucose resu lt greater than or equal to 126 mg/dL suggests DIABETES MELLITUS per A.D.A. criteria. Potassium [Moles/Vol] 3.7 mmol/L 3.5-5.1 [facility] Comment on above: Moderate Hemolysis, Result may be falsely increased. Sodium [Moles/Vol] 138 mmol/L 136-145 [facility] Blood erythrocytes count (nu mber/volume)Ordered By: Sushil Yepez on 07-14-2023 RBC (Bld) [#/Vol] 4.05 10*6/uL 4.6-6.2 [facility] Blood hemoglobin measurement (mass/volume)Ordered By: Sushil Yepez on 07-14-2023 Hemoglobin (Bld) [Mass/Vol] 13.6 g/dL 13.0-16.5 [facility] Blood lymphocytes/100 leukoc ytesOrdered By: Sushil Yepez on 07-14-2023 Lymphocytes/100 WBC (Bld) 18.7 % 19-41 [facility] Blood monocytes/100 leukocyt esOrdered By: Sushil Yepez on 07-14-2023 Monocytes/100 WBC (Bld) 4.4 % 0-10 [facility] Blood platelet mean volumeOr dered By: Sushil Yepez on 07-14-2023 Platelet mean volume (Bld) [Entitic vol] 9.2 fL 6.2-12.0 [facility] Determination of erythrocyte mean corpuscular volume (MCV)Ordered By: Sushil Yepez on 07-14-2023 MCV (RBC) [Entitic vol] 100.2 fL 80-94 [facility] Hematocrit Auto (Bld) [Volum e fraction]Ordered By: Sushil Yepez on 07-14-2023 Hematocrit (Bld) [Volume fraction] 40.6 % 40-54 [facility] Influenza virus A and B and SARS-CoV-2 (COVID-19) Ag panel - Upper respiratory specimOrdered By: Sushil Yepez on 07-14-2023 SARS-CoV-2 (COVID-19) RNA ALBER+probe Ql (Resp) [facility] - Chemistry and C hemistry - challengeOrdered By: Sushil Yepez on 07-14-2023 CO2 [Moles/Vol] 22.0 mmol/L 21.0-32.0 [facility] Urea nitrogen/Creatinine [Mass ratio] 12.3 mg/mg 10-20 [facility] - Hematology and Cell countsOrdered By: Sushil Yepez on 07-14-2023 Erythrocyte distribution width (RBC) [Entitic vol] 47.2 fL 35.1-43.9 [facility] Erythrocyte distribution width (RBC) [Ratio] 12.9 % 11.6-14.6 [facility] Immature granulocytes/100 WBC (Bld) 0.400 % 0.0-0.9 [facility] Comment on above: IG% - Immature Granu locytes (promyelocytes, myelocytes and metamyelocytes) > 1% indicates that a LEFT SHIFT is Present. MCH (RBC) [Entitic mass] 33.6 pg 27.0-32.0 [facility] Nucleated RBC/100 WBC (Bld) [Ratio] 0 % 0-5 [facility] MCHC Auto (RBC) [Mass/Vol]Or dered By: Sushil Yepez on 07-14-2023 MCHC (RBC) [Mass/Vol] 33.5 g/dL 32-36 [facility] No Panel InformationOrdered By: Sushil Yepez on 07-14-2023 Estimated Creatinine Clearance Calc 106.78 ml/min [facility] Estimated GFR (MDRD) Amer 100 mL/min >60 [facility] Comment on above: GFR Calc Estimated GFR (MDRD) Non-Af Amer 83 mL/min >60 [facility] Comment on above: Non- GFR Calc Platelets bldOrdered By: Sergo Yepez on 07-14-2023 Platelets (Bld) [#/Vol] 190 10*3/uL 150-450 [facility] Serum or plasma calcium tanner urement (mass/volume)Ordered By: Sushil Yepez on 07-14-2023 Calcium [Mass/Vol] 8.8 mg/dL 8.5-10.1 [facility] Serum or plasma creatinine m easurement (mass/volume)Ordered By: Sushil Yepez on 07-14-2023 Creatinine [Mass/Vol] 1.06 mg/dL 0.70-1.30 [facility] Comment on above: The validity of the calculated GFR & GFRAA in patients over 70 years has not been determined. Clinical correlation is essential. Serum or plasma urea nitroge n measurement (mass/volume)Ordered By: Sushil Yepez on 07-14-2023 Urea nitrogen [Mass/Vol] 13 mg/dL 7-18 [facility] Thin prep Papanicolaou smear with manual screeningOrdered By: Sushil Yepez on 07-14-2023 Thin prep Papanicolaou smear with manual screening 8 5-15 [facility] CNPNon 01-04-2020 CNPN Telephone (WOOB) ---- PILY BEST ([id number]) 1985 Date Time Provider Department 01/04/20 RYAN RAMÍREZ During your visit today, we recorded the following information about you: Margot Saavedra RN 01/04/2020 10:06 AM Signed ----- Message from Ryan Albert sent at 01/03/2020 4:44 PM EST ----- Notify patient/ he is negative for CF carrier Margot Saavedra RN 01/04/2020 10:06 AM Signed Left message for patient to call office. Margot Bravo RN 01/04/2020 10:45 AM Addendum Patient/spouse notified. Terrie Bravo RN Allergies As of Date: 01/04/2020 (Not on File) Date Reviewed: Never Reviewed Reason for Visit: Results [95] Problem List As Of Date: 01/04/2020 (None) Encounter Status:Closed by TERRIE BRAVO RN on 01/04/20 Normal [facility] Cystic Fibrosis Path Belén 0 12-26-2019 CF Path Gregg Report (NOTE) [facility] Comment on above: Result Comment: Perf orming Pathologist: Dr. Arun Wade, PhD Interpretation: Cystic Fibrosis Variant Testing Analysis RESULT: Negative INTERPRETATION: This individual is negative for all 142 pathogenic variants analyzed in the CFTR gene. A negative test result reduces the possibility that this individual has cystic fibrosis (CF) and also reduces the CF carrier risk. This test does not detect all variants in the CFTR gene and it is possible that this individual could have a CFTR variant not included in this test. Residual CF carrier risk is based on ethnicity and personal/family history (see table below). For questions about this result, genetic consultation and clinical correlation are recommended. Residual Cystic Fibrosis Carrier Risk after Negative Carrier Screen and with Negative Family History (Residual risk for unlisted ethnicities is unknown) Ethnicity: Carrier rate (Detection rate), Residual carrier risk : 1 in 61 (74%), Residual risk = 1 in 231 Ashkenazi Mandaeism: 1 in 24 (97%), Residual risk = 1 in 768 : 1 in 94 (49%), Residual risk = 1 in 183 : 1 in 25 (91%), Residual risk = 1 in 267 : 1 in 58 (77%), Residual risk = 1 in 248 LIMITATIONS: DNA studies do not provide a definitive genetic risk in all individuals. While results of this testing are highly accurate, infrequent errors may be due to unusual DNA sequences in the DNA analyzed. Rare polymorphisms or large deletions may affect primer binding resulting in a false negative result. A negative cystic fibrosis carrier screening test result does not remove all risk of having a child with one of these disorders because rare variants may influence the risk of developing disease. METHODOLOGY: Purified genomic DNA is subjected to polymerase chain reaction-based amplification. The CFTR gene is interrogated for known clinically relevant variants (see list below). Primer extension products are analyzed using matrix-assisted laser desorption/ionization mass spectrometry, and specific genotypes assigned. The reference genome used is GRCh38/hg38. Cystic fibrosis (CFTR, RefSeq# [id number]) Legacy names of 142 pathogenic variants: 1078delT,1154insTC, 1213delT, 1248+1G>A, 1259insA, 1341+1G>A, 4584ndf1, 1525-1G>A, 1548delG, 1677delTA, 1717-1G>A, 1717-8G>A, 1811+1.6kbA>G, 1812-1G>A, 1898+1G>A, 1898+3A>G, 1898+5G>A, 1898+5G>T, 9987etz1>A, 2143delT, 2183AAtoG, 2184delA, 2184insA, 2307insA, 2347delG, 2585delT, 2622+1G>A, 2711delT, 2789+5G>A, 394delTT, 3007delG, 3120+1G>A, 3120G>A, 3121-1G>A, 4198tdj4, 3272-26A>G, 3659delC, 3791delC, 3849+10KbC>T, 3876delA, 3905insT, 405+1G>A, 406-1G>A, 4005+1G>A, 4016insT, 4209TGTT>AA, 4382delA, 457TAT>G, 574delA, 621+1G>T, 663delT, 711+1G>T, 711+3A>G, 711+5G>A, 712-1G>T, 729urd46, 935delA, A455E, A559T, CFTRdele2,3, OPRUsagu82,23, D110H, R6302L, oaazmP337, wogorS824, B2192V, E585X, E60X, E822X, E831X, E92K, E92X, F508C, S8103E, L5102O, G178R, G330X, G542X, G551D, G85E, G970R, H199Y, I336K, K710X, I8489W, L7016S, L206W, L467P, L732X, L927P, B1193V, M1V, B0427U, P205S, P67L, O2281S, Q220X, Q39X, Q493X, Q525X, Q552X, Q890X, Q98X, Z2767T, Y5871Q, H6824Y, T9070U, R117C, R117H, R334W, R347H, R347P, R352Q, R553X, R560K, R560T, R709X, R75X, R764X, R851X, A7860O, P5846I, I0660H, S341P, S466X, S489X, S492F, S549N, L957P-JJI, O019I-ZCF, S945L, T338I, V520F, D3286R, S3292O, S0634X, I1303K, W401X, W846X, I5721R, U7138K, Y122X (conditionally reported variants: Poly T, I506V, I507V). This test was developed and its performance characteristics determined by [facility] [place] ([facility]). It has not been cleared or approved by the FDA. -[facility] is regulated under CLIA as qualified to perform high-complexity testing. This test is used for clinical purposes. It should not be regarded as investigational or for research. REFERENCES 1. Carrier screening for genetic conditions. Committee Opinion No. 691. [place] [employer]. Obstet Gynecol. 2017;129:e41???55. 2. The Clinical and Functional Translation of CFTR (CFTR2); available at http://cftr2.org. 3. Liliane KRAMER, Sara EM, Ernie SYED, et al. CFTR mutation distribution among [place] and individuals: Evaluation in cystic fibrosis patient and carrier screening populations. [employer] Med. 2004;6(5):392-99. 4. For more information about CF consult www.GeneReviews.org. Performed By: #### C FMDX #### [facility] [address] [place], [place] [address] Vital Signs Date Time Vital Sign Value Performing Clinician Silas fermin 07-14-2023 09:38-0400 Respiratory rate 18 /min [facility] 07-14-2023 07:39-0400 Body height 185.42 cm [facility] 07-14-2023 07:39-0400 Body mass index (BMI) [Ratio] 27.6 kg/m2 [facility] 07-14-2023 07:39-0400 Body temperature 97.6 [degF] [facility] 07-14-2023 07:39-0400 Body weight 94.8 kg [facility] 07-14-2023 07:39-0400 Diastolic blood pressure 86 mm[Hg] [facility] 07-14-2023 07:39-0400 Heart rate 91 /min [facility] 07-14-2023 07:39-0400 SaO2% (BldA) [Mass fraction] 98 % [facility] 07-14-2023 07:39-0400 Systolic blood pressure 128 mm[Hg] [facility] Encounters Encounter Date Encounter Type Care Provider Facility Start: 06-13-2025 End: 06-13-2025 ambulatory Zebulun Beam [facility] Work Phone: -Laboratory Specimen Start: 06-13-2025 End: 06-13-2025 Patient encounter procedure Atul Self MD -Laboratory Specimen Work Phone: Start: 06-13-2025 End: 06-13-2025 ambulatory Zebulun Beam Facility:[facility] Start: 06-07-2025 ambulatory Zebulun Beam Facility:[facility] Start: 06-06-2025 End: 06-06-2025 Patient encounter procedure Krishbulualetha Beam [facility] -Laboratory Mili Rob Start: 06-06-2025 End: 06-06-2025 ambulatory Zebulun Beam Facility:[facility] Start: 05-30-2025 End: 05-30-2025 ambulatory Zebulun Beam [facility] Work Phone: -Laboratory Specimen Start: 05-30-2025 End: 05-30-2025 Patient encounter procedure Atul Self MD -Laboratory Specimen Work Phone: Start: 05-30-2025 End: 05-30-2025 ambulatory Atul Self [facility] Facility:[facility] Start: 02-28-2025 End: 02-28-2025 Patient encounter procedure Zebulun Beam [facility] -Laboratory Mili Rob Start: 02-28-2025 End: 02-28-2025 ambulatory Zebulun Beam Facility:[facility] Start: 07-14-2023 End: 07-14-2023 Emergency department patient visit [facility]-Emergency Department Work Phone: Procedures Date Procedure Procedure Detail Performing Clinician Start: 06-06-2025 Vitamin D, 25-hydrox y measurement Zebulun Beam [facility] Work Phone: Comment on above: Vitamin D StatusDefi ciency: <20 ng/mL (50nmol/L)Insufficiency: 20-30 ng/mL (50-75 nmol/L)Sufficiency: 30-100 ng/mL (75-250 nmol/L)Toxicity: >100 ng/mL (>250 nmol/L) Start: 02-28-2025 Prostate specific an tigen measurement Zebulun Beam [facility] Work Phone: Comment on above: This test was perfor med using the [employer] tPSA method. Measured values of a patient sample can vary depending on the testing procedure used. PSA values determined on patient samples by different testing procedures cannot be used interchangeably. If there is a change in PSA assays while monitoring therapy, sequential testing should be performed to confirm baseline values. Start: 02-28-2025 Vitamin D, 25-hydrox y measurement Zebulun Beam [facility] Work Phone: Comment on above: Vitamin D StatusDefi ciency: <20 ng/mL (50nmol/L)Insufficiency: 20-30 ng/mL (50-75 nmol/L)Sufficiency: 30-100 ng/mL (75-250 nmol/L)Toxicity: >100 ng/mL (>250 nmol/L) Start: 07-14-2023 SARS-CoV-2 & FLU Ant igen (Rapid) Plan of Treatment Date Care Activity Detail Author Patient Education ED Marijuana A buse ED Viral Syndrome (Adult) ED Vomiting (Adult) [facility] Work Phone: Patient referral Doctors [facility] Work Phone: Immunizations Immunization Date Immunization Notes Care Provider Jalil moses 07-11-2015 tetanus toxoid, redu javid diphtheria toxoid, and acellular pertussis vaccine, adsorbed [facility] Payers Date Payer Category Payer Private Health Insurance [id number] 2025 Self-pay Unknown [id number] 2.16.8 [id number] Unknown [id number] 2.16.8 [id number] Unknown [id number] 2.16.8 [id number] Unknown [id number] 2.16.8 [id number] Unknown [id number] 2.16.8 [id number] Social History Date Type Detail Facility Start: 07-14-2023 Tobacco smoking status NHIS Unknown if ever smoked [facility] Start: 07-09-[address] [facility] Start: 07-09-2016 Spouse/ Signif icant Other [facility] Start: 09-07-[address] [facility] Start: 1985 Sex Assigned At Male [facility] Start: 07-14-2023 Tobacco smoking status NHIS Current Light tobacco smoker [facility] Mental Status Date Assessment Result Facility 07-14-2023 Cognitive function Level Of Cons ciousness Awake;Alert;Appropriate;Follow s Commands [facility] Work Phone: Evaluation note Note Date & Type Note Facility Evaluation note No assessment information availa ble [facility] Work Phone: Hospital Discharge instructions Note Date & Type Note Facility Hospital Discharge instructions Additional Instructions EKG and COVID test normal. Basic labs normal. Likely viral syndrome possible marijuana induced. Continue oral fluids, Zofran as needed. Follow-up as an outpatient. Return if any worsening symptoms. [facility] Work Phone: Reason for referral (narrative) Note Date & Type Note Facility Reason for referral (narrative) No reason for referral information available [facility] Work Phone: Summary Purpose Family History No Family History Records Found Relationship Condition Age at Onset Recorded Date/T ludivina Unknown Family History?No pertinent history Unkno wn June 01, 2016 11:24am Advance Directives No Advanced Directives Records Found Advance Directive Response Recorded Date/ Time Advance Directives No June 01 12:56pm Living Will No July 14 023 7:38am Power of [employer] No July 14, 2023 7:38am Advance Directive Response Recorded Date/ Time Advance Directives No June 01 12:56pm Chief Complaint and Reason for Visit Chief Complaint general illness Additional Source Comments (unrecognized sect ion and content) No Status Records FoundNo Status Records Found INFORMATION SOURCE (unrecogn ized section and content) DATE CREATED AUTHOR 01/04/2020 [facility] DATE CREATED AUTHOR AUTHOR'S ORGANIZ ATION 06/22/2025 [facility] Care Teams (unrecognized sec tion and content) Team Status: Active Member Role Status Dates Dr. Gm Ken , Family Provider Active No Primary Care Physician Primary Care Provider Active Team Status: Inactive Member Role Status Dates Dr. Sushil Yepez , DO Emergency Provider Active No Primary Care Physician Primary Care Provider Active Team Status: Active Member Role/Relationship Status Dates Dr. Gm Ken , Family Provider Active Zebulun Beam VSC, [employer]-C Primary Care Provider Active Team Status: Inactive Member Role/Relationship Status Dates Zebulun Beam VSC, [employer]-C Primary Care Provider Active Start: February 28, 2025 End: February 28, 2025 Zebulun Beam VSC, [employer]-C Attending Provider Active Start: February 28, 2025 End: February 28, 2025 Team Status: Inactive Member Role/Relationship Status Dates Zebulun Beam VSC, [employer]-C Primary Care Provider Active Start: May 30, 2025 End: May 30, 2025 Dr. Atul LOMBARDO MD Attending Provider Active Start: May 30, 2025 End: May 30, 2025 Team Status: Inactive Member Role/Relationship Status Dates Zebulun Beam VSC, [employer]-C Primary Care Provider Active Start: June 06, 2025 End: June 06, 2025 Zebulun Beam VSC, [employer]-C Attending Provider Active Start: June 06, 2025 End: June 06, 2025 Team Status: Inactive Member Role/Relationship Status Dates Zebulun Beam VSC, [employer]-C Primary Care Provider Active Start: June 13, 2025 End: June 13, 2025 Dr. Atul LOMBARDO MD Attending Provider Active Start: June 13, 2025 End: June 13, 2025 Goals (unrecognized section and content) Goals may be documented in a n alternate sectionGoals may be documented in an alternate sectionGoals may be documented in an alternate section FOR RECORDS PERTAINING TO PATIENTS WHO ARE OR HAVE BEEN ENROLLED IN A CHEMICAL DEPENDENCY/SUBSTANCEABUSE PROGRAM, SOME INFORMATION MAY BE OMITTED. This clinical summary was aggregated from multiple sources. Caution should be exercised in using it in the provision of clinical care. This summary normalizes information from multiple sources, and as a consequence, information in this document may materially change the coding, format and clinical context of patient data. In addition, data may be omitted in some cases. CLINICAL DECISIONS SHOULD BE BASED ON THE PRIMARY CLINICAL RECORDS. [facility] [employer]. provides no warranty or guarantee of the accuracy or completeness of information in this document.
== END 2025-08-29 23:59 | disposition home or self-care (01) ==
LOC: LAB 12:29
DX: Z00.00 Encounter for general adult medical examination without abnormal findings (principal)

== ENCOUNTER → 2025-10-21 | Outpatient (CLI) | payer OTHER, SELFPAY ==
--- OUTSIDE RECORDS SUMMARY | 2025-10-21 18:28 | XMS RPT_ITS | CCD ---
Author Organization [facility] Care Team Providers Care Higher Education Administrator Name Role Phone Beam SPOOL SANDER-C, Zebulun Primary Care Provider Beam SPOOL SANDER-CRossy Attending Provider Dr. Atul Self MD Attending Provider [phone] Atul Harris Attending Unavailable Beam VSC, Zebulun Primary Care Unavailable Beam VSC, Zebujuani Attending Unavailable Beam VSC, Zebulun Primary Care Unavailable Beam VSC, Zebulun Primary Care Unavailable Clair VSCAtul Attending Unavailable Beam VSC, Rossy Attending Unavailable Beam VSC, Zebulun Referring Unavailable Beam VSC, Zebulun Primary Care Unavailable Beam VSC, Zebulun Primary Care Unavailable Clair LOMBARDO, Atul Attending Unavailable Beam VSC, Zebulun Primary Care Unavailable Beam VSC, Zekimi Attending Unavailable Medications Current Medications Medication Drug Class(es) Dates Sig (Normalized) Sig (Original) acetaminophen 325 mg / oxyCODONE hydrochloride 5 mg oral tablet (3 sources) Opioid Agonist Start: 06-02-2016 Oxycodone-Acetamin ophen 1 TABLET tablet Active 1 - 2 {tbl} PO 4 TIMES DAILY NEEDED as needed for Pain 60 June 02, 2016 6:36pm Start: 06-02-2016 take 1 tablet by domingo th four times daily as needed Oxycodone-Acetaminophen Active [...] tablet Active 500 mg PO DAILY 14 June 02, 2016 12:00am ondansetron 4 mg disintegrating oral tablet (3 sources) Serotonin-3 Receptor Antagonist Start: 07-14-2023 take 1 tablet by mouth every eight hours as needed for nausea Ondansetron 4 mg tablet,disintegra ting Active 4 mg PO EVERY 8 HOURS NEEDED as needed for Nausea July 14, 2023 12:00am traMADol hydrochloride 50 [...] not elsewhere classified, initial encounter] 09-10-2016 Episodic Nausea and vomiting (3 sources) Vomiting; [...] Problem Classification Problem Date Documented Date Episodic/Chronic Contraceptive and procreative management (1 source) Vasectomy status; Translations: [Vasectomy status] Onset: 06-06-2025 Episodic Immunizations and screening for infectious disease (1 source) Contact with and (suspected) exposure to infections with a predominantly sexual mode of transmission; Translations: [Contact with and (suspected) exposure to infections with a predominantly sexual mode of transmission] Onset: 06-04-2025 Episodic Other screening for suspected conditions (not mental disorders or infectious disease) (1 source) Encounter for screening for cardiovascular disorders; Translations: [Encounter for screening for cardiovascular disorders] Onset: 03-05-2025 Episodic Results Test Name Value Interpretation Reference Range Facility [id number] 08-30-2025 [facility] Misc. COMMENT Normal . [facility] Comment on above: Order Comment: [id number] SEMENALYSIS RMT Result Comment: Test Ordered: [id number] Post-Vas Sperm Evaluation,Qual Volume 3.5 mL CB Reference Range: Not Estab. Absent Post-Vas Sperm, Qual Comment CB Reference Range: Absent No sperm were seen in three aliquots of the uncentrifuged specimen, if sperm are present they are below the limit of detection. Performed at: - [facility] [id number] Business Consultant: Se Lacey PhD, Phone: [phone] Performed By: #### L 3410.9992 #### [facility] [place], [address] Surgical pathology reportOrd ered By: Franck Briones on 06-18-2025 Surgical pathology study [facility] Surgery Specimen Level IIIon 06-13-2025 Surgery Specimen Level III Patient Age/Sex Location Account Attending Physician PILY BEST 39/M [facility] [id number] Atul Self MD Specimen: [id number] Received: 06/13/25 Status: NARA Carney Num: [id number] Spec Type: Cyst Subm Dr: Atul Self [...] and saba-white, sebaceous like cyst contents. A insurance claim representative section is submitted in 1 cassette. NM 06/13/2025 CPT:55288 Patient Age/Sex Location Account Attending Physician PILY BEST 39/M [facility] [id number] Atul Self MD Signed (signatur e on file) Dr. Franck Ortega MD 06/18/25 1333 Normal [facility] Comment on above: Performed By: #### P SUIII #### [facility] Laboratory [address] [place] [place], [address] Vitamin D,25 Hydroxyon 06-06 Vitamin D 25-OH 32.9 ng/mL Normal 30-100 [facility] Comment on above: Result Comment: Alayna min D Status Deficiency: <20 ng/mL (50nmol/L) Insufficiency: 20-30 ng/mL (50-75 nmol/L) Sufficiency: 30-100 ng/mL (75-250 nmol/L) Toxicity: >100 ng/mL (>250 nmol/L) Performed By: #### L 506.1001 #### [facility] [address] [place], [address] Surgical pathology reportOrd ered By: Mackenzie Leos on 06-03-2025 Surgical pathology study [facility] Surgery Specimen Level IIon 05-30-2025 Surgery Specimen Level II ----- Patient Age/Sex Location Account Attending Physician NASIRPILY PAYTON DAVISON 39/M [facility]SPEC [id number] Atul Self MD Specimen: [id number] Received: 05/30/25 Status: NARA Amatocole Num: [id number] Spec Type: VAS Subm Dr: Atul Self MD HEADER OPERATION: Bilateral partial vasectomy PRE-OP DIAGNOSIS: Sterilization TISSUE SUBMITTED: A- Right vas deferens, B- Left vas deferens MICROSCOPIC DIAGNOSIS A. Vas deferens, right, "sterilization", partial vasectomy: - Complete luminal cross-section confirmed. B. Vas deferens, left, "sterilization", partial vasectomy: - Complete luminal cross-section confirmed. MICROSCOPIC DESCRIPTION Slides are reviewed. GROSS DESCRIPTION Received in 2 formalin containers labeled with the patient's name and date of . Designated as: A. "Right" is a 1.4 cm length by 0.3 cm in diameter saba-white to pink, fibrotic, cylindrical portion of tissue. The specimen is inked black, serially sectioned and entirely submitted in 1 cassette. B. "Left" is a 1.0 cm length by 0.3 cm in diameter saba-white to pink, fibrotic, cylindrical portion of tissue. The specimen is inked green, serially sectioned and entirely submitted in 1 cassette. NM 05/30/2025 [facility]:[id number] Patient Age/Sex Location Account Attending Physician PILY BEST 39/M [facility] [id number] Atul Self MD Signed (signatur e on file) Dr. Mackenzie Leos MD 06/03/25 1725 Normal [facility] Comment on above: Performed By: #### P SUII #### [facility] Laboratory [address] [place], [address] Absolute lymphocyte countOrd ered By: Zebulun Beam on 02-28-2025 Lymphocytes Auto (Unsp spec) [#/Vol] 1.94 10*3/uL 0.83-4.51 [facility] Absolute neutrophil countOrd ered By: Zebulun Beam on 02-28-2025 Neutrophils (Bld) [#/Vol] 2.6 10*3/uL 2.0-7.7 [facility] Anion gap in Serum or Plasma Ordered By: Zebulun Beam on 02-28-2025 Anion gap [Moles/Vol] 11 mmol/L 5-15 [facility] Automated lymphocyte count a s percentage of total leukocytesOrdered By: Zebulun Beam on 02-28-2025 Lymphocytes/100 WBC Auto (Unsp spec) 36.7 % - [facility] BUN/creatinine ratioOrdered By: bun Beam on 02-28-2025 Urea nitrogen/Creatinine [Mass ratio] 15.1 mg/mg 10-20 [facility] Basophil percentageOrdered B y: Zebulun Beam on 02-28-2025 Basophils/100 WBC (Bld) 0.9 % 0-1 [facility] Bilirubin, totalOrdered By: Zebulun Beam on 02-28-2025 Bilirubin [Mass/Vol] 0.33 mg/dL 0.00-1.30 [facility] CBC W/Diff, Automatedon 02-06 Absolute Lymph 1.94 X10 3/uL Normal 0.83-4.51 [facility] Comment on above: Performed By: #### L 501.9985, L506.1001, L500.4050, L500.4100, L503.0106, L100.0100, L501.9910, L501.9520 #### [facility] [address] [place], [address] Absolute Neut 2.6 X10 3/uL Normal 2.0-7.7 [facility] Comment on above: Performed By: #### L 501.9985, L506.1001, L500.4050, L500.4100, L503.0106, L100.0100, L501.9910, L501.9520 #### [facility] [address] [place], [address] Basophils/100 WBC (Bld) 0.9 % Normal 0-1 [facility] Comment on above: Performed By: #### L 501.9985, L506.1001, L500.4050, L500.4100, L503.0106, L100.0100, L501.9910, L501.9520 #### [facility] [address] [place], [address] Eosinophils/100 WBC (Bld) 7.0 % High 0-5 [facility] Comment on above: Performed By: #### L 501.9985, L506.1001, L500.4050, L500.4100, L503.0106, L100.0100, L501.9910, L501.9520 #### [facility] [address] [place], [address] Erythrocyte distribution width (RBC) [Ratio] 12.2 % Normal 11.6-14.6 [facility] Comment on above: Performed By: #### L 501.9985, L506.1001, L500.4050, L500.4100, L503.0106, L100.0100, L501.9910, L501.9520 #### [facility] [address] [place], [address] Hematocrit (Bld) [Volume fraction] 44.8 % Normal 40-54 [facility] Comment on above: Performed By: #### L 501.9985, L506.1001, L500.4050, L500.4100, L503.0106, L100.0100, L501.9910, L501.9520 #### [facility] [address] [place], [address] Hemoglobin (Bld) [Mass/Vol] 15.5 g/dL Normal 13.0-16.5 [facility] Comment on above: Performed By: #### L 501.9985, L506.1001, L500.4050, L500.4100, L503.0106, L100.0100, L501.9910, L501.9520 #### [facility] [address] [place], [address] IG% 0.200 Normal 0.0-0.9 [facility] Comment on above: Result Comment: IG% - Immature Granulocytes (promyelocytes, myelocytes and metamyelocytes) > 1% indicates that a LEFT SHIFT is Present. Performed By: #### L 501.9985, L506.1001, L500.4050, L500.4100, L503.0106, L100.0100, L501.9910, L501.9520 #### [facility] [address] [place], [address] Lymphocytes/100 WBC (Bld) 36.7 % Normal 19-41 [facility] Comment on above: Performed By: #### L 501.9985, L506.1001, L500.4050, L500.4100, L503.0106, L100.0100, L501.9910, L501.9520 #### [facility] [address] [place], [address] MCH (RBC) [Entitic mass] 33.9 pg High 27.0-32.0 [facility] Comment on above: Performed By: #### L 501.9985, L506.1001, L500.4050, L500.4100, L503.0106, L100.0100, L501.9910, L501.9520 #### [facility] [address] [place], [address] MCHC (RBC) [Mass/Vol] 34.6 g/dL Normal 32-36 [facility] Comment on above: Performed By: #### L 501.9985, L506.1001, L500.4050, L500.4100, L503.0106, L100.0100, L501.9910, L501.9520 #### [facility] [address] [place], [address] MCV (RBC) [Entitic vol] 98.0 fL High 80-94 [facility] Comment on above: Performed By: #### L 501.9985, L506.1001, L500.4050, L500.4100, L503.0106, L100.0100, L501.9910, L501.9520 #### [facility] [address] [place], [address] Monocytes/100 WBC (Bld) 6.4 % Normal 0-10 [facility] Comment on above: Performed By: #### L 501.9985, L506.1001, L500.4050, L500.4100, L503.0106, L100.0100, L501.9910, L501.9520 #### [facility] [address] [place], [address] Neutrophils/100 WBC (Bld) 48.8 % Normal 47-70 [facility] Comment on above: Performed By: #### L 501.9985, L506.1001, L500.4050, L500.4100, L503.0106, L100.0100, L501.9910, L501.9520 #### [facility] [address] [place], [address] Nucleated RBC (Bld) [#/Vol] 0 10*3/uL Normal 0-5 [facility] Comment on above: Performed By: #### L 501.9985, L506.1001, L500.4050, L500.4100, L503.0106, L100.0100, L501.9910, L501.9520 #### [facility] [address] [place], [address] Platelet mean volume (Bld) [Entitic vol] 9.2 fL Normal 6.2-12.0 [facility] Comment on above: Performed By: #### L 501.9985, L506.1001, L500.4050, L500.4100, L503.0106, L100.0100, L501.9910, L501.9520 #### [facility] [address] [place], [address] Platelets (Bld) [#/Vol] 208 10*3/uL Normal 150-450 [facility] Comment on above: Performed By: #### L 501.9985, L506.1001, L500.4050, L500.4100, L503.0106, L100.0100, L501.9910, L501.9520 #### [facility] [address] [place], [address] RBC (Bld) [#/Vol] 4.57 10*6/uL Low 4.6-6.2 [facility] Comment on above: Performed By: #### L 501.9985, L506.1001, L500.4050, L500.4100, L503.0106, L100.0100, L501.9910, L501.9520 #### [facility] [address] [place], [address] RDW SD 44.1 fl High 35.1-43.9 [facility] Comment on above: Performed By: #### L 501.9985, L506.1001, L500.4050, L500.4100, L503.0106, L100.0100, L501.9910, L501.9520 #### [facility] [address] [place], [address] WBC (Bld) [#/Vol] 5.3 10*3/uL Normal 4.4-11.0 [facility] Comment on above: Performed By: #### L 501.9985, L506.1001, L500.4050, L500.4100, L503.0106, L100.0100, L501.9910, L501.9520 #### [facility] [address] [place], [place], [id number] Calculated very low density lipoprotein (VLDL) cholesterol measurementOrdered By: Enrriquelun Beam on 02-28-2025 Calculated very low density lipoprotein (VLDL) cholesterol measurement 14 mg/dL 5-40 [facility] Carbon dioxide, total [Moles /volume] in Central venous bloodOrdered By: Enrriquelun Beam on 02-28-2025 CO2 [Moles/Vol] 24.4 mmol/L 21.0-32.0 [facility] Chloride assayOrdered By: Krish Agarwal on 02-28-2025 Chloride [Moles/Vol] 105 mmol/L 98-108 [facility] Comprehensive Metabolic Prof ilon 02-28-2025 Albumin [Mass/Vol] 4.2 g/dL Normal 3.5-5.0 [facility] Comment on above: Performed By: #### L 501.9985, L506.1001, L500.4050, L500.4100, L503.0106, L100.0100, L501.9910, L501.9520 #### [facility] [address] [place], [place], [address] Albumin/Globulin [Mass ratio] 1.4 {ratio} Normal 0.9-2.4 [facility] Comment on above: Performed By: #### L 501.9985, L506.1001, L500.4050, L500.4100, L503.0106, L100.0100, L501.9910, L501.9520 #### [facility] [address] [place], [address] ALK PHOS 81 U/L Normal 40-129 [facility] Comment on above: Performed By: #### L 501.9985, L506.1001, L500.4050, L500.4100, L503.0106, L100.0100, L501.9910, L501.9520 #### [facility] [address] [place], [address] ALT [Catalytic activity/Vol] 13 U/L Normal <=46 [facility] Comment on above: Performed By: #### L 501.9985, L506.1001, L500.4050, L500.4100, L503.0106, L100.0100, L501.9910, L501.9520 #### [facility] [address] [place], [address] AST [Catalytic activity/Vol] 19 U/L Normal <=37 [facility] Comment on above: Performed By: #### L 501.9985, L506.1001, L500.4050, L500.4100, L503.0106, L100.0100, L501.9910, L501.9520 #### [facility] [address] [place], [address] Bilirubin [Mass/Vol] 0.33 mg/dL Normal 0.00-1.30 [facility] Comment on above: Performed By: #### L 501.9985, L506.1001, L500.4050, L500.4100, L503.0106, L100.0100, L501.9910, L501.9520 #### [facility] [address] [place], [address] BUN/CRE 15.1 RATIO Normal 10-20 [facility] Comment on above: Performed By: #### L 501.9985, L506.1001, L500.4050, L500.4100, L503.0106, L100.0100, L501.9910, L501.9520 #### [facility] [address] [place], [address] Calcium [Mass/Vol] 8.8 mg/dL Normal 7.6-11.0 [facility] Comment on above: Performed By: #### L 501.9985, L506.1001, L500.4050, L500.4100, L503.0106, L100.0100, L501.9910, L501.9520 #### [facility] [address] [place], [address] Chloride [Moles/Vol] 105 mmol/L Normal 98-108 [facility] Comment on above: Performed By: #### L 501.9985, L506.1001, L500.4050, L500.4100, L503.0106, L100.0100, L501.9910, L501.9520 #### [facility] [address] [place], [address] CO2 [Moles/Vol] 24.4 mmol/L Normal 21.0-32.0 [facility] Comment on above: Performed By: #### L 501.9985, L506.1001, L500.4050, L500.4100, L503.0106, L100.0100, L501.9910, L501.9520 #### [facility] [address] [place], [address] Creatinine [Mass/Vol] 0.99 mg/dL Normal 0.70-1.20 [facility] Comment on above: Performed By: #### L 501.9985, L506.1001, L500.4050, L500.4100, L503.0106, L100.0100, L501.9910, L501.9520 #### [facility] [address] [place], [address] GAP 11 Normal 5-15 [facility] Comment on above: Performed By: #### L 501.9985, L506.1001, L500.4050, L500.4100, L503.0106, L100.0100, L501.9910, L501.9520 #### [facility] [address] [place], [address] GFR/1.73 sq M.predicted among non-blacks MDRD (S/P/Bld) [Vol rate/Area] 99 mL/min/{1.73_m2} Normal >60 [facility] Comment on above: Result Comment: mL/m in/1.73m2 CKD-EPI Creatinine Equation (2020) Performed By: #### L 501.9985, L506.1001, L500.4050, L500.4100, L503.0106, L100.0100, L501.9910, L501.9520 #### [facility] [address] [place], [address] Globulin (S) [Mass/Vol] 3.0 g/dL Normal 2.2-4.2 [facility] Comment on above: Performed By: #### L 501.9985, L506.1001, L500.4050, L500.4100, L503.0106, L100.0100, L501.9910, L501.9520 #### [facility] [address] [place], [address] Glucose [Mass/Vol] 93 mg/dL Normal 70-99 [facility] Comment on above: Performed By: #### L 501.9985, L506.1001, L500.4050, L500.4100, L503.0106, L100.0100, L501.9910, L501.9520 #### [facility] [address] [place], [address] Potassium [Moles/Vol] 4.2 mmol/L Normal 3.3-5.1 [facility] Comment on above: Performed By: #### L 501.9985, L506.1001, L500.4050, L500.4100, L503.0106, L100.0100, L501.9910, L501.9520 #### [facility] [address] [place], [address] Sodium [Moles/Vol] 140 mmol/L Normal 133-145 [facility] Comment on above: Performed By: #### L 501.9985, L506.1001, L500.4050, L500.4100, L503.0106, L100.0100, L501.9910, L501.9520 #### [facility] [address] [place], [address] T PROT 7.2 g/dL Normal 5.9-8.4 [facility] Comment on above: Performed By: #### L 501.9985, L506.1001, L500.4050, L500.4100, L503.0106, L100.0100, L501.9910, L501.9520 #### [facility] [address] [place], [address] Urea nitrogen [Mass/Vol] 15 mg/dL Normal 4-19 [facility] Comment on above: Performed By: #### L 501.9985, L506.1001, L500.4050, L500.4100, L503.0106, L100.0100, L501.9910, L501.9520 #### [facility] [address] [place], [address] Eosinophil percentageOrdered By: Kenian Beam on 02-28-2025 Eosinophils/100 WBC (Bld) 7.0 % High 0-5 [facility] Erythrocyte distribution wid th ratioOrdered By: [facility] on 02-28-2025 Erythrocyte distribution width (RBC) [Ratio] 12.2 % 11.6-14.6 [facility] Erythrocyte distribution wid th standard deviationOrdered By: [facility] Agarwal on 02-28-2025 Erythrocyte distribution width (RBC) [Ratio] 44.1 fl High 35.1-43.9 [facility] Glomerular filtration rate ( GFR) estimation/1.73 sq m using serum, plasma, or whole bOrdered By: kimi Agarwal on 02-28-2025 GFR/1.73 sq M.predicted among non-blacks MDRD (S/P/Bld) [Vol rate/Area] 99 mL/min/{1.73_m2} >60 [facility] Comment on above: mL/min/1.73m2 CKD-EP I Creatinine Equation (2020) Hematocrit Auto (Bld) [Volum e fraction]Ordered By: kimi Agarwal on 02-28-2025 Hematocrit (Bld) [Volume fraction] 44.8 % 40-54 [facility] Hemoglobin A1con 02-28-2025 HbA1c (Bld) [Mass fraction] 5.5 % Normal <=5.6 [facility] Comment on above: Result Comment: Norm al < 5.7 % Prediabetic 5.7 - 6.4 % Diabetic >or= 6.5 % Please note range changes. Performed By: #### P SUIII #### [facility] [address] [place], [place], [id number] Hemoglobin A1c percentageOrd ered By: kimi Agarwal on 02-28-2025 HbA1c (Bld) [Mass fraction] 5.5 % <5.7 [facility] Comment on above: Normal < 5.7 % Predi abetic 5.7 - 6.4 % Diabetic >or= 6.5 % Please note range changes. Hemoglobin measurementOrdere d By: Rossy Agarwal on 02-28-2025 Hemoglobin (Bld) [Mass/Vol] 15.5 g/dL 13.0-16.5 [facility] Immature granulocytes/100 WB C Auto (Bld)Ordered By: Rossy Agarwal on 02-28-2025 Immature granulocytes/100 WBC (Bld) 0.200 % 0.0-0.9 [facility] Comment on above: IG% - Immature Granu locytes (promyelocytes, myelocytes and metamyelocytes) > 1% indicates that a LEFT SHIFT is Present. LDL calc ser/plasOrdered By: Rossy Agarwal on 02-28-2025 Cholesterol in LDL [Mass/Vol] 129 mg/dL [facility] Comment on above: Hmvmpsuemm=740-226 m g/dL & Higher Ycpq=988 mg/dL or greater Laboratory - Chemistry and C hemistry - challengeOrdered By: Rossy Agarwal on 02-28-2025 AST [Catalytic activity/Vol] 19 U/L <38 [facility] Lipid Profileon 02-28-2025 CHOL:HDL 4.37 Normal [facility] Comment on above: Performed By: #### L 501.9985, L506.1001, L500.4050, L500.4100, L503.0106, L100.0100, L501.9910, L501.9520 #### [facility] [address] [place], [place], [id number] (262) Cholesterol [Mass/Vol] 185 mg/dL Normal <=200 [facility] Comment on above: Result Comment: Chol esterol level, Desirable <200 mg/dL Borderline high cholesterol 200-239 mg/dL High cholesterol >=240 mg/dL Recommendations of the NCEP Adult Treatment Panel for the following risk-cutoff thresholds for the [place] population. Performed By: #### L 501.9985, L506.1001, L500.4050, L500.4100, L503.0106, L100.0100, L501.9910, L501.9520 #### [facility] [address] [place], [address] Cholesterol in HDL [Mass/Vol] 42 mg/dL Normal [facility] Comment on above: Result Comment: [place] onal Cholesterol Education Program (NCEP) guidelines: <40 mg/dL: Low HDL-cholesterol (major risk factor for CHD) >= 60 mg/dL: High HDL-cholesterol (negative risk factor for CHD) HDL-cholesterol is affected by a number of factors, e.g. smoking, exercise, hormones, sex and age. Performed By: #### L 501.9985, L506.1001, L500.4050, L500.4100, L503.0106, L100.0100, L501.9910, L501.9520 #### [facility] [address] [place], [address] Cholesterol in LDL [Mass/Vol] 129 mg/dL Normal [facility] Comment on above: Result Comment: Bord jhgydl=892-544 mg/dL Higher Swlh=291 mg/dL or greater Performed By: #### L 501.9985, L506.1001, L500.4050, L500.4100, L503.0106, L100.0100, L501.9910, L501.9520 #### [facility] [address] [place], [address] Cholesterol in VLDL [Mass/Vol] 14 mg/dL Normal 5-40 [facility] Comment on above: Performed By: #### L 501.9985, L506.1001, L500.4050, L500.4100, L503.0106, L100.0100, L501.9910, L501.9520 #### [facility] [address] [place], [address] Triglyceride [Mass/Vol] 68 mg/dL Normal [facility] Comment on above: Result Comment: The drugs N-Acetylcysteine and Metamizole may falsely depress this assay. Normal range: <150 mg/dL Borderline High: 150-199 mg/dL High: 200-499 mg/dL Very High: >500 mg/dL Performed By: #### L 501.9985, L506.1001, L500.4050, L500.4100, L503.0106, L100.0100, L501.9910, L501.9520 #### [facility] [address] [place], [address] MCV (mean corpuscular volume ) determinationOrdered By: Zebulun Beam on 02-28-2025 MCV (RBC) [Entitic vol] 98.0 fL High 80-94 [facility] Mean corpuscular hemoglobin (MCH) determinationOrdered By: Zebulun Beam on 02-28-2025 MCH (RBC) [Entitic mass] 33.9 pg High 27.0-32.0 [facility] Mean corpuscular hemoglobin concentration (MCHC) determinationOrdered By: bulun Beam on 02-28-2025 MCHC (RBC) [Mass/Vol] 34.6 g/dL 32-36 [facility] Mean platelet volume determi nationOrdered By: bun Beam on 02-28-2025 Platelet mean volume (Bld) [Entitic vol] 9.2 fL 6.2-12.0 [facility] Monocyte percentageOrdered B y: Zebun Beam on 02-28-2025 Monocytes/100 WBC (Bld) 6.4 % 0-10 [facility] Neutrophil percentageOrdered By: [facility] Beam on 02-28-2025 Neutrophils/100 WBC (Bld) 48.8 % 47-70 [facility] Nucleated red blood cell per centageOrdered By: [facility] 02-28-2025 Nucleated RBC/100 WBC (Bld) [Ratio] 0 % 0-5 [facility] PSA,Total - Annual Screenon 02-28-2025 PSA,TOT SCREEN 0.75 ng/mL Normal 0.02-4.00 [facility] Comment on above: Result Comment: This test [...] confirm baseline values. Performed By: #### L 501.9985, L506.1001, L500.4050, L500.4100, L503.0106, L100.0100, L501.9910, L501.9520 #### [facility] [address] [place], [address] Platelet countOrdered By: Krish Agarwal on 02-28-2025 Platelets (Bld) [#/Vol] 208 10*3/uL 150-450 [facility] Potassium measurement (mass/ volume)Ordered By: Rossy Agarwal on 02-28-2025 Potassium (Unsp spec) [Mass/Vol] 4.2 mmol/L 3.3-5.1 [facility] RBC Auto (Bld) [#/Vol]Ordere d By: Rossy Agarwal on 02-28-2025 RBC (Bld) [#/Vol] 4.57 10*6/uL Low 4.6-6.2 [facility] Screening total cholesterol/ high density lipoprotein (HDL) cholesterol ratioOrdered By: Rossy Agarwal on 02-28-2025 Cholesterol.total/Cholest kenzie in HDL [Mass ratio] 4.37 {ratio} [facility] Serum creatinine measurement (mass/volume)Ordered By: Rossy Agarwal on 02-28-2025 Creatinine [Mass/Vol] 0.99 mg/dL 0.70-1.20 [facility] Serum globulin measurementOr dered By: Rossy Agarwal on 02-28-2025 Globulin (S) [Mass/Vol] 3.0 g/dL 2.2-4.2 [facility] Serum glucose measurement (m ass/volume)Ordered By: Rossy Agarwal on 02-28-2025 Glucose [Mass/Vol] 93 mg/dL 70-99 [facility] Serum or plasma alanine anand otransferase (ALT) measurementOrdered By: Rossy Agarwal on 02-28-2025 ALT [Catalytic activity/Vol] 13 U/L <47 [facility] Serum or plasma albumin tanner urement (mass/volume)Ordered By: Rossy Agarwal on 02-28-2025 Albumin [Mass/Vol] 4.2 g/dL 3.5-5.0 [facility] Serum or plasma albumin/glob ulin mass ratioOrdered By: [facility] on 02-28-2025 Albumin/Globulin [Mass ratio] 1.4 {ratio} 0.9-2.4 [facility] Serum or plasma alkaline miranda sphatase measurementOrdered By: [facility] on 02-28-2025 ALP [Catalytic activity/Vol] 81 U/L 40-129 [facility] Serum or plasma calcium tanner urement (mass/volume)Ordered By: [facility] on 02-28-2025 Calcium [Mass/Vol] 8.8 mg/dL 7.6-11.0 [facility] Serum or plasma cholesterol in HDL measurement (mass/volume)Ordered By: [facility] on 02-28-2025 Cholesterol in HDL [Mass/Vol] 42 mg/dL >40 [facility] Comment on above: National Cholesterol Education Program (NCEP) guidelines:<40 mg/dL: Low HDL-cholesterol (major risk factor for CHD)>= 60 mg/dL: High HDL-cholesterol (negative risk factor for CHD)HDL-cholesterol is affected by a number of factors, e.g. smoking, exercise, hormones, sex and age. Serum or plasma cholesterol measurement (mass/volume)Ordered By: [facility] on 02-28-2025 Cholesterol [Mass/Vol] 185 mg/dL <201 [facility] Comment on above: Cholesterol level, D esirable <200 mg/dLBorderline high cholesterol 200-239 mg/dLHigh cholesterol >=240 mg/dLRecommendations of the NCEP Adult Treatment Panel for the following risk-cutoff thresholds for the [place] population. Serum or plasma urea nitroge n measurement (mass/volume)Ordered By: [facility] Any on 02-28-2025 Urea nitrogen [Mass/Vol] 15 mg/dL 4-19 [facility] Sodium levelOrdered By: reji juani Any on 02-28-2025 Sodium [Moles/Vol] 140 mmol/L 133-145 [facility] TSH DL <= 0.005 mIU/L QnOrde red By: [facility] on 02-28-2025 TSH Qn 1.990 uIU/mL 0.300-4.200 [facility] Thyroid Stim Hormone (TSH)on 02-28-2025 TSH 1.990 uIU/mL Normal 0.300-4.200 [facility] Comment on above: Performed By: #### L 501.9985, L506.1001, L500.4050, L500.4100, L503.0106, L100.0100, L501.9910, L501.9520 #### [facility] [address] [place], [place], [id number] Total proteinOrdered By: Zander Agarwal on 02-28-2025 Protein [Mass/Vol] 7.2 g/dL 5.9-8.4 [facility] Triglycerides measurementOrd ered By: Rossy Agarwal on 02-28-2025 Triglyceride [Mass/Vol] 68 mg/dL <199 [facility] Comment on above: The drugs N-Acetylcy steine and Metamizole may falsely depress this assay. Normal range: <150 mg/dLBorderline High: 150-199 mg/dLHigh: 200-499 mg/dLVery High: >500 mg/dL Vitamin B12on 02-28-2025 Cobalamin (Vitamin B12) [Mass/Vol] 1665 pg/mL High 180-914 [facility] Comment on above: Performed By: #### L 501.9985, L506.1001, L500.4050, L500.4100, L503.0106, L100.0100, L501.9910, L501.9520 #### [facility] [address] [place], [place], [id number] Vitamin B12 ser/plasOrdered By: Rossy Beam on 02-28-2025 Cobalamin (Vitamin B12) [Mass/Vol] 1665 pg/mL High 180-914 [facility] Vitamin D,25 Hydroxyon 02-28 Vitamin D 25-OH 14.8 ng/mL Low 30-100 [facility] Comment on above: Result Comment: Alayan min D Status Deficiency: <20 ng/mL (50nmol/L) Insufficiency: 20-30 ng/mL (50-75 nmol/L) Sufficiency: 30-100 ng/mL (75-250 nmol/L) Toxicity: >100 ng/mL (>250 nmol/L) Performed By: #### P SUIII #### [facility] [address] [place], [address] White blood cell (WBC) count Ordered By: Rossy Agarwal on 02-28-2025 WBC (Bld) [#/Vol] 5.3 10*3/uL 4.4-11.0 [facility] Absolute lymphocyte countOrd ered By: Sushil Yepez on 07-14-2023 Lymphocytes Auto (Unsp spec) [#/Vol] 1.27 10*3/uL 0.83-4.51 [facility] Basophil percentageOrdered B y: Sushil Yepez on 07-14-2023 Basophils/100 WBC (Bld) 0.6 % 0-1 [facility] Eosinophils/100 WBC (Bld) 2.1 % 0-5 [facility] Neutrophils (Bld) [#/Vol] 5.0 10*3/uL 2.0-7.7 [facility] Neutrophils/100 WBC (Bld) 73.8 % 47-70 [facility] WBC (Bld) [#/Vol] 6.8 10*3/uL 4.4-11.0 [facility] Chloride [Moles/Vol] 108 mmol/L 98-107 [facility] Glucose [Mass/Vol] 134 mg/dL 74-106 [facility] Comment on above: Fasting Glucose resu lt greater than or equal to 126 mg/dL suggests DIABETES MELLITUS per A.D.A. criteria. Potassium [Moles/Vol] 3.7 mmol/L 3.5-5.1 [facility] Comment on above: Moderate Hemolysis, Result may be falsely increased. Sodium [Moles/Vol] 138 mmol/L 136-145 [facility] Blood erythrocytes count (nu mber/volume)Ordered By: Sushil Yepez on 07-14-2023 RBC (Bld) [#/Vol] 4.05 10*6/uL 4.6-6.2 [facility] Blood hemoglobin measurement (mass/volume)Ordered By: Sushil Yepez on 07-14-2023 Hemoglobin (Bld) [Mass/Vol] 13.6 g/dL 13.0-16.5 [facility] Blood lymphocytes/100 leukoc ytesOrdered By: Sushil Yepez on 07-14-2023 Lymphocytes/100 WBC (Bld) 18.7 % 19-41 [facility] Blood monocytes/100 leukocyt esOrdered By: Sushil Yepez on 07-14-2023 Monocytes/100 WBC (Bld) 4.4 % 0-10 [facility] Blood platelet mean volumeOr dered By: Sushil Yepez on 07-14-2023 Platelet mean volume (Bld) [Entitic vol] 9.2 fL 6.2-12.0 [facility] Determination of erythrocyte mean corpuscular volume (MCV)Ordered By: Sushil Yepez on 07-14-2023 MCV (RBC) [Entitic vol] 100.2 fL 80-94 [facility] Hematocrit Auto (Bld) [Volum e fraction]Ordered By: Sushil Yepez on 07-14-2023 Hematocrit (Bld) [Volume fraction] 40.6 % 40-54 [facility] Influenza virus A and B and SARS-CoV-2 (COVID-19) Ag panel - Upper respiratory specimOrdered By: Sushil Yepez on 07-14-2023 SARS-CoV-2 (COVID-19) RNA ALBER+probe Ql (Resp) [facility] - Chemistry and C hemistry - challengeOrdered By: Sushil Yepez on 07-14-2023 CO2 [Moles/Vol] 22.0 mmol/L 21.0-32.0 [facility] Urea nitrogen/Creatinine [Mass ratio] 12.3 mg/mg 10-20 [facility] - Hematology and Cell countsOrdered By: Sushil Yepez on 07-14-2023 Erythrocyte distribution width (RBC) [Entitic vol] 47.2 fL 35.1-43.9 [facility] Erythrocyte distribution width (RBC) [Ratio] 12.9 % 11.6-14.6 [facility] Immature granulocytes/100 WBC (Bld) 0.400 % 0.0-0.9 [facility] Comment on above: IG% - Immature Granu locytes (promyelocytes, myelocytes and metamyelocytes) > 1% indicates that a LEFT SHIFT is Present. MCH (RBC) [Entitic mass] 33.6 pg 27.0-32.0 [facility] Nucleated RBC/100 WBC (Bld) [Ratio] 0 % 0-5 [facility] MCHC Auto (RBC) [Mass/Vol]Or dered By: Sushil Yepez on 07-14-2023 MCHC (RBC) [Mass/Vol] 33.5 g/dL 32-36 [facility] No Panel InformationOrdered By: Sushil Yepez on 07-14-2023 Estimated Creatinine Clearance Calc 106.78 ml/min [facility] Estimated GFR (MDRD) Amer 100 mL/min >60 [facility] Comment on above: GFR Calc Estimated GFR (MDRD) Non-Af Amer 83 mL/min >60 [facility] Comment on above: Non- GFR Calc Platelets bldOrdered By: Sergo Yepez on 07-14-2023 Platelets (Bld) [#/Vol] 190 10*3/uL 150-450 [facility] Serum or plasma calcium tanner urement (mass/volume)Ordered By: Sushil Yepez on 07-14-2023 Calcium [Mass/Vol] 8.8 mg/dL 8.5-10.1 [facility] Serum or plasma creatinine m easurement (mass/volume)Ordered By: Sushil Yepez on 07-14-2023 Creatinine [Mass/Vol] 1.06 mg/dL 0.70-1.30 [facility] Comment on above: The validity of the calculated GFR & GFRAA in patients over 70 years has not been determined. Clinical correlation is essential. Serum or plasma urea nitroge n measurement (mass/volume)Ordered By: Sushil Yepez on 07-14-2023 Urea nitrogen [Mass/Vol] 13 mg/dL 7-18 [facility] Thin prep Papanicolaou smear with manual screeningOrdered By: Sushil Yepez on 07-14-2023 Thin prep Papanicolaou smear with manual screening 8 5-15 [facility] CNPNon 01-04-2020 CNPN Telephone (WOOB) ---- PILY BEST ([id number]) 1985 M Date Time Provider Department 01/04/20 RYAN RAMÍREZ [...] by TERRIE BRAVO RN on 01/04/20 Normal [facility] Cystic Fibrosis Path Belén 0 12-26-2019 CF Path Gregg Report (NOTE) Normal [facility] Comment on above: Result Comment: Perf orming [...] Residual risk = 1 in 231 Ashkenazi Uatsdin: 1 in 24 (97%), Residual risk = [...] pathogenic variants: 1078delT,1154insTC, 1213delT, 1248+1G>A, 1259insA, 1341+1G>A, 8762giu3, 1525-1G>A, 1548delG, 1677delTA, 1717-1G>A, 1717-8G>A, 1811+1.6kbA>G, 1812-1G>A, 1898+1G>A, 1898+3A>G, 1898+5G>A, 1898+5G>T, 0229hug7>A, 2143delT, 2183AAtoG, 2184delA, 2184insA, 2307insA, 2347delG, 2585delT, 2622+1G>A, 2711delT, 2789+5G>A, 394delTT, 3007delG, 3120+1G>A, 3120G>A, 3121-1G>A, 6238hil1, 3272-26A>G, 3659delC, 3791delC, 3849+10KbC>T, 3876delA, 3905insT, 405+1G>A, 406-1G>A, 4005+1G>A, 4016insT, 4209TGTT>AA, 4382delA, 457TAT>G, 574delA, 621+1G>T, 663delT, 711+1G>T, 711+3A>G, 711+5G>A, 712-1G>T, 059elj81, 935delA, A455E, A559T, CFTRdele2,3, GBDGhtth62,23, D110H, R9201B, grdvjM357, odybmA579, G7758S, E585X, E60X, E822X, E831X, E92K, E92X, F508C, F2009A, L8195R, G178R, G330X, G542X, G551D, G85E, G970R, H199Y, I336K, K710X, X5021Q, Z1556S, L206W, L467P, L732X, L927P, X0486G, M1V, Z7004C, P205S, P67L, G3962F, Q220X, Q39X, Q493X, Q525X, Q552X, Q890X, Q98X, W8128F, Q6287S, T6827X, Z9328R, R117C, R117H, R334W, R347H, R347P, R352Q, R553X, R560K, R560T, R709X, R75X, R764X, R851X, D8177W, Y4911A, R9931J, S341P, S466X, S489X, S492F, S549N, G238B-PUQ, C042A-GJV, S945L, T338I, V520F, L9993B, Y4423R, F9947A, I6657V, W401X, W846X, T3638Z, A0148X, Y122X (conditionally reported variants: Poly T, I506V, I507V). This test was developed and its performance characteristics determined by [facility]'s [facility] [place] ([facility]). It has not been cleared or approved by the FDA. [facility] is regulated under CLIA as qualified to perform high-complexity testing. This test is used for clinical purposes. It should not be regarded as investigational or for research. REFERENCES 1. Carrier screening for genetic conditions. Committee Opinion No. 691. [place] [employer]. Obstet Gynecol. 2017;129:e41???55. 2. The Clinical and Functional Translation of CFTR (CFTR2); available at http://cftr2.org. 3. Liliane KRAMER, Sara EM, Ernie SYED, et al. CFTR mutation distribution among [place] and individuals: Evaluation in cystic fibrosis patient and carrier screening populations. Carrie Med. 2004;6(5):392-99. 4. For more information about CF consult www.GeneReviews.org. Performed By: #### C FMDX #### [place] [address] Vital Signs Date Time Vital Sign Value Performing Clinician Faci lity 07-14-2023 09:38-0400 Respiratory rate 18 /min [facility] 07-14-2023 07:39-0400 Body height 185.42 cm [facility] 07-14-2023 07:39-0400 Body mass index (BMI) [Ratio] 27.6 kg/m2 [facility] 07-14-2023 07:39-0400 Body temperature 97.6 [degF] [facility] 07-14-2023 07:39-0400 Body weight 94.8 kg [facility] 07-14-2023 07:39-0400 Diastolic blood pressure 86 mm[Hg] [facility] 07-14-2023 07:39-0400 Heart rate 91 /min [facility] 07-14-2023 07:39-0400 SaO2% (BldA) [Mass fraction] 98 % [facility] 07-14-2023 07:39-0400 Systolic blood pressure 128 mm[Hg] [facility] Encounters Encounter Date Encounter Type Care Provider Facility Start: 09-16-2025 Encounter for genera l adult medical examination without abnormal findings Zebujuani Agarwal [facility] Start: 08-29-2025 End: 08-29-2025 ambulatory Zebulun Beam VSC Facility:[facility] Start: 06-13-2025 End: 06-13-2025 ambulatory Zebulun Beam [employer] [facility] Work Phone: -Laboratory Specimen Start: 06-13-2025 End: 06-13-2025 Patient encounter procedure Atul Self MD -Laboratory Specimen Work Phone: Start: 06-13-2025 End: 06-13-2025 ambulatory Zebulun Beam VSC Facility:[facility] Start: 06-07-2025 ambulatory Zebulun Beam VSC Facili ty:[facility] Start: 06-06-2025 End: 06-06-2025 Patient encounter procedure Zebulun Beam [employer] [facility] -Laboratory Mili Rob Start: 06-06-2025 End: 06-06-2025 ambulatory Zebulun Beam VSC Facility:[facility] Start: 05-30-2025 End: 05-30-2025 ambulatory Zebulun Beam [employer] Work Phone: -Laboratory Specimen Start: 05-30-2025 End: 05-30-2025 Patient encounter procedure Atul Self MD -Laboratory Specimen Work Phone: Start: 05-30-2025 End: 05-30-2025 ambulatory Atul Self VSC Facility:[facility] Start: 02-28-2025 End: 02-28-2025 Patient encounter procedure Zebulun Beam [facility] [facility] -Laboratory Mili Rob Start: 02-28-2025 End: 02-28-2025 ambulatory Zebulun Beam VSC Facility:[facility] Start: 07-14-2023 End: 07-14-2023 Emergency department patient visit [facility]-Emergency Department Work Phone: Procedures Date Procedure Procedure Detail Performing Clinician Start: 06-06-2025 Vitamin D, 25-hydrox y measurement Zebulun Beam [employer] Work Phone: Comment on above: Vitamin D StatusDefi ciency: <20 ng/mL (50nmol/L)Insufficiency: 20-30 ng/mL (50-75 nmol/L)Sufficiency: 30-100 ng/mL (75-250 nmol/L)Toxicity: >100 ng/mL (>250 nmol/L) Start: 02-28-2025 Prostate specific an tigen measurement Zebulun Beam [employer] Work Phone: Comment on above: This test [...] Vitamin D, 25-hydrox y measurement Zebulun Beam [employer] Work Phone: Comment on above: Vitamin D StatusDefi ciency: <20 ng/mL (50nmol/L)Insufficiency: 20-30 ng/mL (50-75 nmol/L)Sufficiency: 30-100 ng/mL (75-250 nmol/L)Toxicity: >100 ng/mL (>250 nmol/L) Start: 07-14-2023 SARS-CoV-2 & FLU Ant igen (Rapid) Plan of Treatment Date Care Activity Detail Author Patient Education ED Marijuana A buse ED Viral Syndrome (Adult) ED Vomiting (Adult) [facility] Work Phone: Patient referral [facility] Work Phone: Immunizations Immunization Date Immunization Notes Care Provider Fa josué 07-11-2015 tetanus toxoid, redu javid diphtheria toxoid, and acellular pertussis vaccine, adsorbed [facility] Payers Date Payer Category Payer Private Health Insurance [id number] 2025 Self-pay Unknown [id number] Unknown [id number] Unknown [id number] 2.16.8 [id number] Unknown [id number] 2.16.8 [id number] Unknown [id number] 2.16.8 [id number] Unknown [id number] 2.16.8 [id number] Unknown [id number] 2.16.8 [id number] Unknown [id number] 2.16.8 [id number] Social History Date Type Detail Facility Start: 07-14-2023 Tobacco smoking status COIS Unknown if ever smoked [facility] Start: 07-09-2016 None [facility] Start: 07-09-2016 Spouse/ Signif icant Other [facility] Start: 09-07-2016 Cigarettes [facility] Start: 1985 Sex Assigned At Male [facility] Start: 07-14-2023 Tobacco smoking status COIS Current Light tobacco smoker [facility] Mental Status Date Assessment Result Facility 07-14-2023 Cognitive function Level Of Cons ciousness Awake;Alert;Appropriate;Follow s Commands [facility] Work Phone: Evaluation note Note Date & Type Note Facility Evaluation note No assessment information availa ble [facility] Work Phone: Hospital Discharge instructions Note Date & Type Note Facility Hospital Discharge instructions Additional Instructions EKG and COVID test normal. Basic labs normal. Likely viral syndrome possible marijuana induced. Continue oral fluids, Zofran as needed. Follow-up as an outpatient. Return if any worsening symptoms. [facility] Work Phone: Reason for referral (narrative) Note Date & Type Note Facility Reason for referral (narrative) No reason for referral information available [facility] Work Phone: Summary Purpose Family History No Family History Records Found Relationship Condition Age at Onset Recorded Date/T ludivina Unknown Family History?No pertinent history Unkno wn June 01, 2016 11:24am Advance Directives No Advanced Directives Records Found Advance Directive Response Recorded Date/ Time Advance Directives No June 01 12:56pm Living Will No July 14 2 023 7:38am Power of Hyperbaric Technologist No July 14, 2023 7:38am Advance Directive Response Recorded Date/ Time Advance Directives No June 01 12:56pm Chief Complaint and Reason for Visit Chief Complaint general illness Additional Source Comments (unrecognized sect ion and content) No Status Records FoundNo Status Records Found INFORMATION SOURCE (unrecogn ized section and content) DATE CREATED AUTHOR 01/04/2020 [facility] DATE CREATED AUTHOR AUTHOR'S ORGANIZ ATION 09/16/2025 [facility] Care Teams (unrecognized sec tion and content) Team Status: Active Member Role Status Dates Dr. Gm Ken , Family Provider Active No Primary Care Physician Primary Care Provider Active Team Status: Inactive Member Role Status Dates Dr. Sushil Yepez , Emergency Provider Active No Primary Care Physician Primary Care Provider Active Team Status: Active Member Role/Relationship Status Dates Dr. Gm Ken , Family Provider Active Krishbulualetha Beam VSC, [employer] Primary Care Provider Active Team Status: Inactive Member Role/Relationship Status Dates Zebujuani Beam VSC, [employer] Primary Care Provider Active Start: February 28, 2025 End: February 28, 2025 Rossy Beam VSC, [employer] Attending Provider Active Start: February 28, 2025 End: February 28, 2025 Team Status: Inactive Member Role/Relationship Status Dates Zebulualetha Beam VSC, [employer] Primary Care Provider Active Start: May 30, 2025 End: May 30, 2025 Dr. Atul LOMBARDO MD Attending Provider Active Start: May 30, 2025 End: May 30, 2025 Team Status: Inactive Member Role/Relationship Status Dates Zebulun Beam VSC, [employer] Primary Care Provider Active Start: June 06, 2025 End: June 06, 2025 Rossy Beam VSC, [employer] Attending Provider Active Start: June 06, 2025 End: June 06, 2025 Team Status: Inactive Member Role/Relationship Status Dates Zebulualetha Beam VSC, [employer]PO[employer]ER-C Primary Care Provider Active Start: June 13, [...] BE BASED ON THE PRIMARY CLINICAL RECORDS. [facility] [employer] provides no warranty or guarantee of the accuracy or completeness of information in this document.
== END | disposition home or self-care (01) ==
DX: Z98.52 Vasectomy status (principal)